=== PATIENT | female | born 1930 | race Caucasian/White ===

== ENCOUNTER 2017-11-14 05:20 | Emergency (ER) | payer MEDICARE, OTHER ==
[~2017-11-14] VITALS: Ht 157.5 cm; Wt 61.4 kg
[2017-11-14 05:24] VITALS: Ht 157.5 cm; Wt 61.4 kg
[2017-11-14] MEDS ORDERED: EVISTA60 MG PO (05:57)
[2017-11-14] MEDS ORDERED: MOBIC7.5 MG PO (05:58)
[2017-11-14] MEDS ORDERED: COREG6.25 MG PO (05:58)
[2017-11-14] MEDS ORDERED: GLUCOPHAGE500 MG PO (05:59)
[2017-11-14] MEDS ORDERED: BAYER CHEWABLE81 MG PO (06:00)
[2017-11-14] MEDS ORDERED: VITAMIN D31000 UNI2 PO (06:00)
[2017-11-14] MEDS ORDERED: B-12 (06:05)
[2017-11-14 06:27] LABS: BASOPHILS 0.2 % (0-2); EOSINOPHILS 2.9 % (0-7); HEMATOCRIT 34.9 % (36.0-48.0); HEMOGLOBIN 11.6 g/dL (12-16); IMMATURE GRANULOCYTES 0.4 % (0-5); LYMPHOCYTES 26.8 % (15-50); MCH 30.8 pg (26.0-34.0); MCHC 33.2 g/dL (31.0-37.0); MCV 92.6 fL (80.0-100.0); MEAN PLATELET VOLUME 8.8 fL (7.4-10.4); MONOCYTES 13.4 % (2-11); NEUTROPHILS 56.3 % (40-80); PLATELET COUNT 223 10x3/uL (130-400); RBC 3.77 10x6/uL (4.00-5.40); RDW 14.1 % (11.5-14.5); WBC 5.2 10x3/uL (4.8-10.8)
[2017-11-14 07:08] LABS: APTT 28.2 SECONDS (22.8-39.4); INR 1.09 (0.85-1.17); PROTIME 13.7 SECONDS (11.6-15.0)
[2017-11-14 07:09] LABS: ALBUMIN 3.6 g/dL (3.4-5.0); ALKALINE PHOSPHATASE 31 U/L (46-116); ALT (SGPT) 28 U/L (10-68); BILIRUBIN - TOTAL 0.43 mg/dL (0.2-1.3); CALC OSMOLALITY 277 mosm/kg (275-300); CALCIUM 8.6 mg/dL (8.5-10.1); CHLORIDE - SERUM 103 mmol/L (98-107); CREATININE - SERUM 0.8 mg/dL (0.6-1.3); GLUCOSE 146 mg/dL (74-106); POTASSIUM - SERUM 3.6 mmol/L (3.5-5.1); PROTEIN - SERUM 6.9 g/dL (6.4-8.2); SODIUM 138 mmol/L (136-145); UREA NITROGEN 11 mg/dL (7-18); eGFR NON AFRICAN AMERICAN 72 mL/min (90-120)
[2017-11-14 07:19] LABS: CKMB 0.6 U/L (0.0-3.6); CREATINE KINASE 45 UL (21-215); PRO BNP 63 pg/mL (0-450); TROPONIN-I < 0.017 ng/mL (0.000-0.060)
[2017-11-14] MEDS ORDERED: TYLENOL W/CODEI1 TAB PO (09:31)
[2017-11-14 10:16] VITALS: BP 141/70
== END 2017-11-14 10:37 | disposition home or self-care (01) ==
LOC: D.ER 05:20
PROVIDERS: Family Medicine
DX: S43.401A Unspecified sprain of right shoulder joint, initial encounter (principal); X58.XXXA Exposure to other specified factors, initial encounter; Y93.89 Activity, other specified; Y92.019 Unspecified place in single-family (private) house as the place of occurrence of the external cause; M25.511 Pain in right shoulder; I44.4 Left anterior fascicular block

== ENCOUNTER 2018-05-01 10:46 | Inpatient (IN) | payer MEDICARE, OTHER ==
[~2018-05-01] VITALS: Ht 157.5 cm; Wt 65.8 kg
[~2018-05-01 10:46] MED LIST: B-12; BAYER CHEWABLE81 MG PO; COREG6.25 MG PO; EVISTA60 MG PO; GLUCOPHAGE500 MG PO; MOBIC7.5 MG PO; TYLENOL W/CODEI1 TAB PO; VITAMIN D31000 UNI2 PO
[2018-05-01] MEDS ORDERED: MYRBETRIQ25 MG PO (11:19)
[2018-05-01] MEDS ORDERED: BENTYL10 MG PO (11:25)
[2018-05-01] MEDS ORDERED: IBUPROFEN IB100 MG PO (11:26)
[2018-05-01] MEDS ORDERED: ZYRTEC10 MG PO (11:26)
[2018-05-01 11:27] LABS: BASOPHILS 0 % (0-2); EOSINOPHILS 0.3 % (0-7); HEMATOCRIT 30.8 % (36.0-48.0); LYMPHOCYTES 19.9 % (15-50); MCH 28.6 pg (26.0-34.0); MCHC 32.5 g/dL (31.0-37.0); MEAN PLATELET VOLUME 8.7 fL (7.4-10.4); MONOCYTES 17.6 % (2-11); NEUTROPHILS 62.2 % (40-80); PLATELET COUNT 142 10x3/uL (130-400); RDW 14.7 % (11.5-14.5); WBC 3.9 10x3/uL (4.8-10.8)
[2018-05-01] MEDS ORDERED: CALCIUM 500 +1 EAC3 (11:27)
[2018-05-01] MEDS ORDERED: ZANTAC300 MG PO (11:27)
[2018-05-01] MEDS ORDERED: VITAMIN D250000 UNIT PO (11:28)
[2018-05-01] MEDS ORDERED: CELEXA20 MG PO ×2 (11:28→16:10)
[2018-05-01] MEDS ORDERED: ED-SPAZ0.125 MG PO (11:29)
[2018-05-01] MEDS ORDERED: MOBIC7.5 MG (11:29)
[2018-05-01] MEDS ORDERED: AMBIEN5 MG PO (11:30)
[2018-05-01] MEDS ORDERED: GLUCOPHAGE500 MG PO (11:30)
[2018-05-01] MEDS ORDERED: ASPIRIN81 MG PO (11:30)
[2018-05-01] MEDS ORDERED: LIPITOR20 MG PO (11:31)
[2018-05-01] MEDS ORDERED: FLUTICASONE PRO16 GM (11:32)
[2018-05-01 11:39] LABS: INR 1.13 (0.85-1.17)
[2018-05-01 11:40] LABS: APTT 35.8 SECONDS (22.8-39.4)
[2018-05-01 11:47] LABS: ALBUMIN 3.4 g/dL (3.4-5.0); ALKALINE PHOSPHATASE 40 U/L (46-116); ALT (SGPT) 20 U/L (10-68); CALC OSMOLALITY 278 mosm/kg (275-300); CALCIUM 8.2 mg/dL (8.5-10.1); CARBON DIOXIDE 24.1 mmol/L (21.0-32.0); CHLORIDE - SERUM 102 mmol/L (98-107); CREATININE - SERUM 0.7 mg/dL (0.6-1.3); GLUCOSE 129 mg/dL (74-106); POTASSIUM - SERUM 3.5 mmol/L (3.5-5.1); PROTEIN - SERUM 6.8 g/dL (6.4-8.2); SODIUM 139 mmol/L (136-145); UREA NITROGEN 10 mg/dL (7-18); eGFR NON AFRICAN AMERICAN 84 mL/min (90-120)
[2018-05-01 11:56] VITALS: BP 141/59
[2018-05-01 11:56] LABS: CKMB 0.2 U/L (0.0-3.6); CREATINE KINASE 56 UL (21-215)
[2018-05-01 11:57] LABS: TROPONIN-I < 0.017 ng/mL (0.000-0.060)
[2018-05-01 12:23] LABS: APPEARANCE SL CLDY (CLEAR); BILIRUBIN NEGATIVE (NEGATIVE); COLOR YELLOW (YELLOW); GLUCOSE NEGATIVE (NEGATIVE); KETONE MODERATE mg/dL (NEGATIVE); NITRITE POSITIVE (NEGATIVE); PROTEIN TRACE mg/dL (NEGATIVE); SPECIFIC GRAVITY 1.015 (1.005-1.020); UROBILINOGEN NORMAL (NORMAL); WHITE CELLS - URINE 0-5 /hpf (0-5)
[2018-05-01 12:24] LABS: BACTERIA MANY /hpf (NONE SEEN); EPITHELIAL CELLS 0-5 /hpf (0-5); MUCUS <1+ /lpf (NONE SEEN)
[2018-05-01] MEDS ORDERED: LIPITOR10 MG PO (12:34)
--- NOTE | 2018-05-01 12:35 | NUR ---
GRANDDAUGHTER AT NURSING STATION TO REPORT PT LIVES INDEPENDENTLY. SHE HAS NO ASSISTANCE AT HOME.
[2018-05-01] MEDS ORDERED: TAMIFLU75 MG PO (12:39)
[2018-05-01] MEDS ORDERED: CIPRO500 MG PO (12:39)
[2018-05-01 13:44] VITALS: BP 140/109
--- NOTE | 2018-05-01 15:10 | NUR ---
PT GRANDDAUGHTER: ALLISON KACIE - DPOA - [phone]
--- NOTE | 2018-05-01 15:12 | NUR ---
ROCEPHIN 1GM INFUSED AT 1328. LEVAQUIN 500MG INFUSED AT 1449. PT RESTING QUIETLY, DENIES NEEDS AT THIS TIME.
[2018-05-01 15:42] VITALS: BP 102/47
[2018-05-01] MEDS ORDERED: AMOXICILLIN500 M1 PO (16:09)
[2018-05-01 16:13] VITALS: BP 109/39; BMI 26.6
--- NOTE | 2018-05-01 19:45 | NUR ---
PT SITTING UP IN BED, NO SIGNS OF DISTRESS. ALERT AND ORIENTED. IV LEFT WRIST INFUSING NS @ 75. O2 2L/NC. DROPLET ISOLATION FOR FLU. ASSISTED ON AND OFF BEDPAN TO VOID. PT STATES LEGS ARE ACHY, GAVE TYLENOL ORDERED. SCDS IN PLACE. NO OTHER COMPLAINTS OR NEEDS AT THIS TIME. CL IN REACH, WILL CONTINUE TO MONITOR
--- NOTE | 2018-05-01 21:30 | NUR ---
BS 142, NO COVERAGE PER SS
[2018-05-01 21:36] VITALS: BP 98/44
--- NOTE | 2018-05-02 04:26 | NUR ---
PT ACCIDENTALLY PULLED OUT IV LEFT WRIST W/ CATHETER TIP INTACT. RESITED 22G IV RIGHT WRIST X2 ATTEMPT. FLUSHES EASILY. DRESSING CDI
[2018-05-02 05:44] VITALS: BP 135/55
[2018-05-02 05:50] LABS: BASOPHILS 0 % (0-2); EOSINOPHILS 0 % (0-7); HEMATOCRIT 32.2 % (36.0-48.0); HEMOGLOBIN 10.3 g/dL (12-16); LYMPHOCYTES 15.1 % (15-50); MCH 28.7 pg (26.0-34.0); MCV 89.7 fL (80.0-100.0); MEAN PLATELET VOLUME 9.2 fL (7.4-10.4); MONOCYTES 1.3 % (2-11); NEUTROPHILS 83.6 % (40-80); PLATELET COUNT 128 10x3/uL (130-400); RBC 3.59 10x6/uL (4.00-5.40); RDW 15.1 % (11.5-14.5); WBC 3.9 10x3/uL (4.8-10.8)
[2018-05-02 06:06] LABS: ANION GAP 16.3 mmol/L (8-16); CALCIUM 8.3 mg/dL (8.5-10.1); CARBON DIOXIDE 23.2 mmol/L (21.0-32.0); MAGNESIUM - SERUM 1.9 mg/dL (1.8-2.4); POTASSIUM - SERUM 3.5 mmol/L (3.5-5.1)
[2018-05-02 06:07] LABS: CREATININE - SERUM 0.9 mg/dL (0.6-1.3)
--- NOTE | 2018-05-02 06:27 | NUR ---
BS 98, NO COVERAGE PER SS
--- NOTE | 2018-05-02 07:35 | NUR ---
ASSESSMENT COMPLETE. IV TO R WRIST PATENT. DROPLET ISOLATION PRECAUTIONS IN PLACE. O2 2L NC IN USE. BLOOD TINGED SPUTUM NOTED. DENIES ANY NEEDS AT THIS TIME.
[2018-05-02 09:14] VITALS: BP 118/45
[2018-05-02 10:07] VITALS: Ht 157.5 cm; Wt 65.8 kg
--- NOTE | 2018-05-02 11:00 | NUR ---
RESTING QUIETLY IN BED. DENIES ANY NEEDS AT THIS TIME.
[2018-05-02 12:47] VITALS: BP 106/42
--- NOTE | 2018-05-02 15:33 | NUR ---
SCD'S IN USE TO BILAT LEGS.
[2018-05-02 16:23] VITALS: BP 104/49
[2018-05-02 21:11] VITALS: BP 107/49
[2018-05-03 00:46] VITALS: BP 132/42
[2018-05-03 05:42] VITALS: BP 166/70
[2018-05-03 05:45] LABS: CALC OSMOLALITY 286 mosm/kg (275-300); CALCIUM 8.2 mg/dL (8.5-10.1); CARBON DIOXIDE 22.8 mmol/L (21.0-32.0); CHLORIDE - SERUM 111 mmol/L (98-107); CREATININE - SERUM 0.7 mg/dL (0.6-1.3); GLUCOSE 97 mg/dL (74-106); HEMATOCRIT 28.6 % (36.0-48.0); HEMOGLOBIN 9.6 g/dL (12-16); LYMPHOCYTES 35.5 % (15-50); MAGNESIUM - SERUM 2.1 mg/dL (1.8-2.4); MCH 29.4 pg (26.0-34.0); MCHC 33.6 g/dL (31.0-37.0); MEAN PLATELET VOLUME 8.8 fL (7.4-10.4); NEUTROPHILS 42.4 % (40-80); PLATELET COUNT 110 10x3/uL (130-400); POTASSIUM - SERUM 3.4 mmol/L (3.5-5.1); RBC 3.26 10x6/uL (4.00-5.40); RDW 14.2 % (11.5-14.5); SODIUM 144 mmol/L (136-145); UREA NITROGEN 12 mg/dL (7-18); eGFR NON AFRICAN AMERICAN 84 mL/min (90-120)
[2018-05-03 05:46] LABS: MCV 87.7 fL (80.0-100.0); WBC 3.1 10x3/uL (4.8-10.8)
[2018-05-03 09:13] VITALS: BP 147/57
[2018-05-03 12:00] VITALS: BP 143/59
--- NOTE | 2018-05-03 15:18 | MORECARE ---
CASE MANAGEMENT DISCHARGE SUMMARY PATIENT: ARCELIA RUBIN UNIT: [id number] ADM DATE: 05/01/18 AGE: 87 : 31 SEX: F ROOM/BED: D.2202 AUTHOR: CADEN LIANG PHYSICIAN: REFERRING PHYSICIAN: CHERRI NELSON MD DATE OF SERVICE: 05/03/18 Discharge Plan Patient Name: ARCELIA RUBIN [facility] : 1930 Planned Disposition: Anticipated Discharge Date: Discharge Date: Expected LOS: Initial Reviewer: [email or web address] Initial Review Date: 05/01/2018 Generated: 05/03/18 4:17 pm Comments DCP- Discharge Planning Updated by [id number]: Rhonda Han on 05/03/18 2:[address] ATTEMPTED TO SEE PATIENT FOR DISCHARGE PLANNING AND SHE ASKED IF I COULD COME BACK, CM WILL TRY TO SEE PATIENT AT A LATER TIME Patient Name: ARCELIA RUBIN Page 66795 at 1518 All edits/amendments must be made on the electronic document DICTATION DATE: 05/03/181516 BEET TOPPER: JOSIAH 05/03/181516 RPT#: [id number] DC DATE: STATUS: ADM IN [facility] [address] [place] [address] END OF REPORT
[2018-05-03 16:00] VITALS: BP 121/58
[2018-05-03 22:01] VITALS: BP 129/53
[2018-05-04 05:14] VITALS: BP 144/64
[2018-05-04 06:54] LABS: HEMATOCRIT 29.4 % (36.0-48.0); HEMOGLOBIN 9.5 g/dL (12-16); MCH 28.2 pg (26.0-34.0); MCHC 32.3 g/dL (31.0-37.0); MCV 87.2 fL (80.0-100.0); MEAN PLATELET VOLUME 8.9 fL (7.4-10.4); PLATELET COUNT 129 10x3/uL (130-400); RBC 3.37 10x6/uL (4.00-5.40); RDW 14.9 % (11.5-14.5); WBC 2.6 10x3/uL (4.8-10.8)
[2018-05-04 07:11] LABS: CALC OSMOLALITY 281 mosm/kg (275-300); CALCIUM 8.3 mg/dL (8.5-10.1); CARBON DIOXIDE 21.7 mmol/L (21.0-32.0); CHLORIDE - SERUM 107 mmol/L (98-107); CREATININE - SERUM 0.7 mg/dL (0.6-1.3); GLUCOSE 98 mg/dL (74-106); MAGNESIUM - SERUM 1.7 mg/dL (1.8-2.4); POTASSIUM - SERUM 3.3 mmol/L (3.5-5.1); SODIUM 142 mmol/L (136-145); UREA NITROGEN 9 mg/dL (7-18); eGFR NON AFRICAN AMERICAN 84 mL/min (90-120)
[2018-05-04 08:43] LABS: EOSINOPHILS 1 % (0-7); HYPOCHROMASIA 2+; LYMPHOCYTES 39 % (15-50); MONOCYTES 4 % (2-11); NEUTROPHILS 53 % (40-80); PLATELET ESTIMATE NORMAL
[2018-05-04 09:00] VITALS: BP 146/66
--- NOTE | 2018-05-04 09:31 | NUR ---
LOW POTASSIUM, ADMINISTERED PO POTASSIUM, MAGNESIUM IV BAG 1/2 ADMINISTERED FOR LOW MAG PER PROTOCOL. BED LOWERED AND LOCKED, CALL LIGHT WITHIN REACH. CPOC
[2018-05-04 13:40] VITALS: BP 116/65
--- NOTE | 2018-05-04 14:28 | MORECARE ---
CASE MANAGEMENT DISCHARGE SUMMARY PATIENT: ARCELIA RUBIN UNIT: [id number] ADM DATE: 05/01/18 AGE: 87 : 31 SEX: F ROOM/BED: D.2202 AUTHOR: CADEN LIANG PHYSICIAN: REFERRING PHYSICIAN: CHERRI NELSON MD DATE OF SERVICE: 05/04/18 Discharge Plan Patient Name: ARCELIA RUBIN Facility: [facility]:[place] : 1930 Planned Disposition: Anticipated Discharge Date: Discharge Date: Expected LOS: Initial Reviewer: [email or web address] Initial Review Date: 05/04/2018 Generated: 05/04/18 3:28 pm Comments DCP- Discharge Planning Updated by [email or web address]: Rhonda Han on 05/03/18 2:[address] ATTEMPTED TO SEE PATIENT FOR DISCHARGE PLANNING AND SHE ASKED IF I COULD COME BACK, CM WILL TRY TO SEE PATIENT AT A LATER TIME DCPIA - Discharge Planning Initial Assessment Updated by [email or web address]: Rachel Ryan on 05/04/18 2:28 pm * Is the patient Alert and Oriented? Yes * PCP NELSNO * Preadmission Environment Home Alone * ADLs Independent * Equipment Cane Walker * List name and contact numbers for known caregivers / representatives who currently or will assist patient after discharge: RAMESH ANTHONY, * Verbal permission to speak to the caregivers and representatives has been obtained from the patient. Yes * Community resources currently utilized None * Additional services required to return to the preadmission environment? Yes * Can the patient safely return to the preadmission environment? Yes * Has this patient been hospitalized within the prior 30 days at any hospital? No Coverage Notice Reviewer: [email or web address] - Rachel Ryan Notice Issued Date-Time: 05/04/2018 14:18 Notice Type: Patient Choice Letter Notice Delivered To: Family Member Relationship to Patient: Materials Management Manager Name: Delivery Method: HAND - Hand Delivered Cindi Days: Prior Verbal Notification: Recipient Understood Notice: Yes Recipient Signature: Yes Med Rec Note Co-signed by Attending: Coverage Notice [facility] Last DP export: 05/03/18 2:18 p Patient Name: ARCELIA RUBIN Page [id number] at 1428 All edits/amendments must be made on the electronic document DICTATION DATE: 05/04/181426 AUTOMATIC FURNACE OPERATOR: JOSIAH 05/04/181426 RPT#: [id number] DC DATE: STATUS: ADM IN [facility] [address] [place] [address] END OF REPORT
--- NOTE | 2018-05-04 14:36 | MORECARE ---
CASE MANAGEMENT DISCHARGE SUMMARY PATIENT: ARCELIA RUBIN UNIT: [id number] ADM DATE: 05/01/18 AGE: 87 : 31 SEX: F ROOM/BED: D.2202 AUTHOR: GARTH,DOC PHYSICIAN: REFERRING PHYSICIAN: CHERRI NELSON MD DATE OF SERVICE: 05/04/18 Discharge Plan Patient Name: ARCELIA RUBIN Facility: [facility]:[place] : 1930 Planned Disposition: Anticipated Discharge Date: Discharge Date: Expected LOS: Initial Reviewer: [email or web address] Initial Review Date: 05/04/2018 Generated: 05/04/18 3:36 pm Comments DCP- Discharge Planning Updated by [email or web address]: Rachel Ryan on 05/04/18 1:[address] Patient Name: ARCELIA RUBIN Admission Status: ER Accout number: [id number] Admission Date: 05-01-2018 : 1930 Admission Diagnosis: Attending: CHERRI NELSON Current LOS: 3 Anticipated DC Date: Planned Disposition: Primary Insurance: MEDICARE A & B Discharge Planning Comments: CM MET WITH PATIENT AND HER JUDI STAN ABOUT DC PLANNING. PLANS TO DC TO INPATIENT REHAB OR [facility]. SAVAGE SIGNED. PATIENT LIVES AT [facility] IN AN [place]. CONSULTS WERE PUT IN TODAY FOR OT, PT AND REHAB. CM WILL FOLLOW AND ASSIST NEEDED WITH DC PLANNING/NEEDS. Assignment Desk Assistant: Rachel Ryan DCP- Discharge Planning Updated by [email or web address]: Rhonda Han on 05/03/18 2:[address] ATTEMPTED TO SEE PATIENT FOR DISCHARGE PLANNING AND SHE ASKED IF I COULD COME BACK, CM WILL TRY TO SEE PATIENT AT A LATER TIME DCPIA - Discharge Planning Initial Assessment Updated by [email or web address]: Rachel Ryan on 05/04/18 2:28 pm * Is the patient Alert and Oriented? Yes * PCP LESLIE * Preadmission Environment Home Alone * ADLs Independent * Equipment Cane Walker * List name and contact numbers for known caregivers / representatives who currently or will assist patient after discharge: RAMESH ANTHONY, * Verbal permission to speak to the caregivers and representatives has been obtained from the patient. Yes * Community resources currently utilized None * Additional services required to return to the preadmission environment? Yes * Can the patient safely return to the preadmission environment? Yes * Has this patient been hospitalized within the prior 30 days at any hospital? No Coverage Notice Reviewer: [id number] Diana Ryan Notice Issued Date-Time: 05/04/2018 14:18 Notice Type: Patient Choice Letter Notice Delivered To: Family Member Relationship to Patient: Assistant Professor Of Dietetics Name: Delivery Method: HAND - Hand Delivered Cindi Days: Prior Verbal Notification: Recipient Understood Notice: Yes Recipient Signature: Yes Med Rec Note Co-signed by Attending: Coverage Notice Comment: [facility]REHAB OR [facility] Last DP export: 05/04/18 1:28 p Patient Name: ARCELIA RUBIN Page [phone] at 1436 All edits/amendments must be made on the electronic document DICTATION DATE: 05/04/18 1436 INSPECTOR AND UNLOADER: JOSIAH 05/04/18 1436 RPT#: [id number] DC DATE: STATUS: ADM IN [facility] [address] [place] [address] END OF REPORT
--- NOTE | 2018-05-04 14:47 | NUR ---
REHAB PRESCREEN PT IS CURRENTLY REFUSING THERAPY AND WANTS TO WAIT TIL SUNDAY BECAUSE SHE IS TO WEAK. WILL MONITOR HER PROGRESSION AND EVAL HER WHEN SHE IS MORE WILLING. THANK YOU FOR THIS EVAL. JANNIE CANALES CLINICAL LIASION
[2018-05-04 18:20] VITALS: BP 146/99
--- NOTE | 2018-05-04 19:25 | NUR ---
ALERT, EVEN UNLABORED BREATHING ON ROOM AIR, IV IN RIGHT WRIST, PATENT, IV FLUIDS INFUSING, BED LOWERED AND LOCKED, CALL LIGHT WITHIN REACH. CPOC
--- NOTE | 2018-05-04 20:15 | NUR ---
LYING IN BED. ALERT AND ORIENTED TO SELF AND PLACE. CONFUSED. RESP NONLABORED. BBS DIMINISHED. DENIES PAIN. O2 @ 2L/NC. GEN WEAKNESS NOTED. INCONT AT TIMES. NS @ 75 ML/HR INFUSING IN RT WRIST WITHOUT DIFF. NO DISTRESS. ISOLATION PRECAUTIONS IN USE FOR FLU. SR ELEVATED X2. CL IN REACH.
[2018-05-04 21:41] VITALS: BP 133/54
[2018-05-05 04:24] VITALS: BP 139/59
--- NOTE | 2018-05-05 04:45 | NUR ---
HAS SLEPT WELL TONIGHT. NO DISTRESS. CL IN REACH.
[2018-05-05 06:48] LABS: BASOPHILS 0.4 % (0-2); EOSINOPHILS 1.8 % (0-7); HEMATOCRIT 30.5 % (36.0-48.0); HEMOGLOBIN 9.7 g/dL (12-16); LYMPHOCYTES 49.6 % (15-50); MCH 28.1 pg (26.0-34.0); MCHC 31.8 g/dL (31.0-37.0); MCV 88.4 fL (80.0-100.0); MEAN PLATELET VOLUME 9.2 fL (7.4-10.4); MONOCYTES 12.1 % (2-11); NEUTROPHILS 36.1 % (40-80); PLATELET COUNT 129 10x3/uL (130-400); RBC 3.45 10x6/uL (4.00-5.40); RDW 14.7 % (11.5-14.5); WBC 2.7 10x3/uL (4.8-10.8)
[2018-05-05 06:59] LABS: CALC OSMOLALITY 281 mosm/kg (275-300); CALCIUM 8.1 mg/dL (8.5-10.1); CARBON DIOXIDE 23.6 mmol/L (21.0-32.0); CHLORIDE - SERUM 108 mmol/L (98-107); CREATININE - SERUM 0.7 mg/dL (0.6-1.3); GLUCOSE 103 mg/dL (74-106); POTASSIUM - SERUM 3.7 mmol/L (3.5-5.1); SODIUM 142 mmol/L (136-145); UREA NITROGEN 9 mg/dL (7-18); eGFR NON AFRICAN AMERICAN 84 mL/min (90-120)
--- NOTE | 2018-05-05 08:04 | NUR ---
SITTING UP RIGHT IN BED, ASSISTED TO USE BED [place]. EVEN UNLABORED BREATHING, O2 PRESENT VIA NC AT 2LPM, AWAKE AND ALERT, ORIENTED X4. SCD'S ON AND IN OPERATION, DENIES ANY CURRENT NEEDS OR DISCOMFORTS, BED LOWERED AND LOCKED, CALL LIGHT WITHIN REACH. CPOC
[2018-05-05 11:02] VITALS: BP 142/60
--- NOTE | 2018-05-05 12:24 | NUR ---
AWAKE AND ALERT, WAS SITTING UP IN CHAIR FOR AN HOUR, ASSISTED TO BEDPAN, VOIDED, ASSISTED WITH 2 PEOPLE BACK TO BED, SCD'S ON AND IN OPERATION, DENIES ANY CURRENT NEEDS OR DISCOMFORTS, BED LOWERED AND LOCKED, CALL LIGHT WTIHIN REACH. CPOC
[2018-05-05 14:15] VITALS: BP 150/64
[2018-05-05 18:48] VITALS: BP 169/70
--- NOTE | 2018-05-05 19:12 | NUR ---
AWAKE AND ALERT, EVEN UNLABORED BREATHING, 2LPM VIA NC, IV IN RIGHT WRIST, PATENT INFUSING NS, DENIES ANY CURRENT NEEDS OR DISCOMFORTS, BED LOWERED AND LOCKED, CALL LIGHT WITHIN REACH. CPOC
--- NOTE | 2018-05-05 19:40 | NUR ---
PT RESTING QUIETLY
--- NOTE | 2018-05-05 19:45 | NUR ---
LYING IN BED. ALERT AND ORIENTED X4. RESP EVEN AND NONLABORED. BBS DIMINISHED. O2 @ 2L/NC. INCONT OF URINE AT TIMES OTHERWISE USES BEDPAN. GEN WEAKNESS NOTED. SCDS IN USE BILAT. NS @ 50 ML/HR INFUSING IN RT WRIST WITHOUT DIFF. NO DISTRESS. DENIES PAIN. ISOLATION PRECAUTIONS IN USE. CL IN REACH.
[2018-05-05 20:00] VITALS: BP 139/85
--- NOTE | 2018-05-06 01:15 | NUR ---
HAS RESTED WELL SO FAR TONIGHT. NO DISTRESS. CL IN REACH.
[2018-05-06 04:00] VITALS: BP 142/61
[2018-05-06 04:17] LABS: BASOPHILS 0.3 % (0-2); EOSINOPHILS 2.5 % (0-7); HEMATOCRIT 30.9 % (36.0-48.0); LYMPHOCYTES 40.4 % (15-50); MCH 28.5 pg (26.0-34.0); MCHC 32.4 g/dL (31.0-37.0); MEAN PLATELET VOLUME 8.8 fL (7.4-10.4); NEUTROPHILS 42.8 % (40-80); PLATELET COUNT 121 10x3/uL (130-400); RBC 3.51 10x6/uL (4.00-5.40); RDW 14.5 % (11.5-14.5); WBC 3.1 10x3/uL (4.8-10.8)
[2018-05-06 04:33] LABS: CALC OSMOLALITY 282 mosm/kg (275-300); CALCIUM 8.6 mg/dL (8.5-10.1); CARBON DIOXIDE 23.4 mmol/L (21.0-32.0); CHLORIDE - SERUM 107 mmol/L (98-107); CREATININE - SERUM 0.6 mg/dL (0.6-1.3); GLUCOSE 116 mg/dL (74-106); MAGNESIUM - SERUM 1.8 mg/dL (1.8-2.4); POTASSIUM - SERUM 3.6 mmol/L (3.5-5.1); SODIUM 142 mmol/L (136-145); UREA NITROGEN 10 mg/dL (7-18); eGFR NON AFRICAN AMERICAN > 90 mL/min (90-120)
--- NOTE | 2018-05-06 07:20 | NUR ---
REC'D IN WALKING ROUND IN BED WITH EYES CLOSED EASILY TO AROUSED WHEN NAME IS CALLED. RESP EVEN AND UNLABORED WITH NO DISTRESS NOTED. CAN EXPRESS NEEDS AND WANTS WITH NONE VOICED AT THIS TIME. ASSESSMENT COMPLETED. C/L IN REACH AT BEDSIDE.
[2018-05-06 08:44] VITALS: BP 150/66
[2018-05-06] MEDS ORDERED: LEVOFLOXACIN500 MG PO (09:50)
--- NOTE | 2018-05-06 10:03 | MORECARE ---
CASE MANAGEMENT DISCHARGE SUMMARY PATIENT: ARCELIA RUBIN UNIT: [id number] ADM DATE: 05/01/18 AGE: 87 : 31 SEX: F ROOM/BED: D.2202 AUTHOR: GARTH,DOC PHYSICIAN: REFERRING PHYSICIAN: CHERRI NELSON MD DATE OF SERVICE: 05/06/18 Discharge Plan Patient Name: ARCELIA RUBIN Facility: [facility]:[place] : 1930 Planned Disposition: Anticipated Discharge Date: Discharge Date: Expected LOS: Initial Reviewer: [id number] Initial Review Date: 05/04/2018 Generated: 05/06/18 11:03 am Comments DCP- Discharge Planning Updated by [email or web address]: Rhonda Han on 05/06/18 9:[address] referral sent to [facility], Spoke with Netta. She will get back with me DCP- Discharge Planning Updated by [id number]: Rachel Ryan on 05/04/18 1:[address] Patient Name: ARCELIA RUBIN Admission Status: ER Accout number: [id number] Admission Date: 05-01-2018 : 1930 Admission Diagnosis: Attending: CHERRI NELSON Current LOS: 3 Anticipated DC Date: Planned Disposition: Primary Insurance: MEDICARE A & B Discharge Planning Comments: CM [facility]. PLANS TO DC TO INPATIENT REHAB [facility] SAVAGE SIGNED. PATIENT LIVES AT [facility] IN AN [place]. CONSULTS WERE PUT IN TODAY FOR OT, PT AND REHAB. CM WILL FOLLOW AND ASSIST NEEDED WITH DC PLANNING/NEEDS. Fountain Helper: Rachel Ryan DCP- Discharge Planning Updated by [email or web address]: Rhonda Han on 05/03/18 2:[address] ATTEMPTED TO SEE PATIENT FOR DISCHARGE PLANNING AND SHE ASKED IF I COULD COME BACK, CM WILL TRY TO SEE PATIENT AT A LATER TIME DCPIA - Discharge Planning Initial Assessment Updated by [email or web address]: Rachel Ryan on 05/04/18 2:28 pm * Is the patient Alert and Oriented? Yes * PCP LESLIE * Preadmission Environment Home Alone * ADLs Independent * Equipment Cane Walker * List name and contact numbers for known caregivers / representatives who currently or will assist patient after discharge: RAMESH ANTHONY, * Verbal permission to speak to the caregivers and representatives has been obtained from the patient. Yes * Community resources currently utilized None * Additional services required to return to the preadmission environment? Yes * Can the patient safely return to the preadmission environment? Yes * Has this patient been hospitalized within the prior 30 days at any hospital? No External Providers External Provider: [facility] Next Contact Date: Service Request Date: Service Type: Resolution: Reviewer: Comments: Coverage Notice Reviewer: [id number] - Rachel Ryan Notice Issued Date-Time: 05/04/2018 14:18 Notice Type: Patient Choice Letter Notice Delivered To: Family Member Relationship to Patient: Cardiac Rehab Nurse Name: Delivery Method: HAND - Hand Delivered Cindi Days: Prior Verbal Notification: Recipient Understood Notice: Yes Recipient Signature: Yes Med Rec Note Co-signed by Attending: Coverage Notice Comment: [facility] Last DP export: 05/04/18 1:36 p Patient Name: ARCELIA RUBIN Page 31001 at 1003 All edits/amendments must be made on the electronic document DICTATION DATE: 05/06/18 1003 CABINET ABRASIVE SANDBLASTER: JOSIAH 05/06/18 1003 RPT#: [id number] DC DATE: STATUS: ADM IN [facility] [address] [place] [address] END OF REPORT
--- NOTE | 2018-05-06 10:41 | NUR ---
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 Provided our acute rehab info. Spoke with JOSE Parks. Thank you for this referral! Jacquie Ann RN Clinical Liaison, [facility]
--- NOTE | 2018-05-06 13:02 | MORECARE ---
CASE MANAGEMENT DISCHARGE SUMMARY PATIENT: ARCELIA RBUIN UNIT: [id number] ADM DATE: 05/01/18 AGE: 87 : 31 SEX: F ROOM/BED: D.2202 AUTHOR: CADEN LIANG PHYSICIAN: REFERRING PHYSICIAN: CHERRI NELSON MD DATE OF SERVICE: 05/06/18 Discharge Plan Patient Name: ARCELIA RUBIN Facility: [facility]:[place] : 1930 Planned Disposition: Anticipated Discharge Date: Discharge Date: Expected LOS: Initial Reviewer: [email or web address] Initial Review Date: 05/04/2018 Generated: 05/06/18 2:01 pm Comments DCP- Discharge Planning Updated by [id number]: Rhonda Han on 05/06/18 11:[address] [facility] stated that they can not take the patient because of her recent DX of the FLU even though her Flu was Negative today. I have called Jacquie at rehab to see if it is still an option to go to inpatient rehab, left message DCP- Discharge Planning Updated by [id number]: Rhonda Han on 05/06/18 9:[address] [facility], Spoke with Netta. She will get back with me DCP- Discharge Planning Updated by [email or web address]: Rachel Ryan on 05/04/18 1:[address] Patient Name: ARCELIA RUBIN Admission Status: ER Accout number: [id number] Admission Date: 05-01-2018 : 1930 Admission Diagnosis: Attending: CHERRI NELSON Current LOS: 3 Anticipated DC Date: Planned Disposition: Primary Insurance: MEDICARE A & B Discharge Planning Comments: CM MET WITH PATIENT AND HER JUDI PIERCE ABOUT DC PLANNING. PLANS TO DC TO INPATIENT REHAB [facility] SAVAGE SIGNED. PATIENT LIVES AT [facility] IN AN [place]. CONSULTS WERE PUT IN TODAY FOR OT, PT AND REHAB. CM WILL FOLLOW AND ASSIST NEEDED WITH DC PLANNING/NEEDS. Trim Setter Helper: Rachel Ryan DCP- Discharge Planning Updated by [id number]: Rhonda Han on 05/03/18 2:[address] ATTEMPTED TO SEE PATIENT FOR DISCHARGE PLANNING AND SHE ASKED IF I COULD COME BACK, CM WILL TRY TO SEE PATIENT AT A LATER TIME DCPIA - Discharge Planning Initial Assessment Updated by [email or web address]: Rachel Ryan on 05/04/18 2:28 pm * Is the patient Alert and Oriented? Yes * PCP LESLIE * Preadmission Environment Home Alone * ADLs Independent * Equipment Cane Walker * List name and contact numbers for known caregivers / representatives who currently or will assist patient after discharge: RAMESH ANTHONY, * Verbal permission to speak to the caregivers and representatives has been obtained from the patient. Yes * Community resources currently utilized None * Additional services required to return to the preadmission environment? Yes * Can the patient safely return to the preadmission environment? Yes * Has this patient been hospitalized within the prior 30 days at any hospital? No Coverage Notice Reviewer: [id number] - Racheltammi Ryan Notice Issued Date-Time: 05/04/2018 14:18 Notice Type: Patient Choice Letter Notice Delivered To: Family Member Relationship to Patient: Concierge Manager Name: Delivery Method: HAND - Hand Delivered Cindi Days: Prior Verbal Notification: Recipient Understood Notice: Yes Recipient Signature: Yes Med Rec Note Co-signed by Attending: Coverage Notice Comment: [facility]AB [facility] Last DP export: 05/06/18 9:03 a Patient Name: ARCELIA RUBIN Page 68976 at 1302 All edits/amendments must be made on the electronic document DICTATION DATE: 05/06/18 1301 CHORUS MASTER: JOSIAH 05/06/18 1301 RPT#: [id number] DC DATE: STATUS: ADM IN [facility] [address] [place] [address] END OF REPORT
[2018-05-06 13:16] VITALS: BP 126/59
--- NOTE | 2018-05-06 13:53 | MORECARE ---
CASE MANAGEMENT DISCHARGE SUMMARY PATIENT: ARCELIA RUBIN UNIT: [id number] ADM DATE: 05/01/18 AGE: 87 : 31 SEX: F ROOM/BED: D.2202 AUTHOR: GARTHDOC PHYSICIAN: REFERRING PHYSICIAN: CHERRI NELSON MD DATE OF SERVICE: 05/06/18 Discharge Plan Patient Name: ARCELIA RUBIN Facility: [facility]:[place] : 1930 Planned Disposition: Anticipated Discharge Date: Discharge Date: Expected LOS: Initial Reviewer: [id number] Initial Review Date: 05/04/2018 Generated: 05/06/18 2:53 pm Comments DCP- Discharge Planning Updated by [email or web address]: Rhonda Emely on 05/06/18 12:[address] Spoke with Jacquie at inpatient rehab and they will accept her today. IMM served and explained and she is agreeable with the discharge plan. I have LM with her granddaughter to call me. CM will continue to follow and assist with DC planning DCP- Discharge Planning Updated by [email or web address]: Rhonda Han on 05/06/18 11:[address] [facility] the patient because of her recent DX of the FLU even though her Flu was Negative today. I have called Jacquie at rehab to see if it is still an option to go to inpatient rehab, left message DCP- Discharge Planning Updated by [email or web address]: Rhonda Han on 05/06/18 9:[address] referral sent to [facility], Spoke with Netta. She will get back with me DCP- Discharge Planning Updated by [email or web address]: Rachel Ryan on 05/04/18 1:[address] Patient Name: ARCELIA RUBIN Admission Status: ER Accout number: [id number] Admission Date: 05-01-2018 : 1930 Admission Diagnosis: Attending: CHERRI NELSON Current LOS: 3 Anticipated DC Date: Planned Disposition: Primary Insurance: MEDICARE A & B Discharge Planning Comments: CM MET WITH PATIENT AND HER GRANDAUGHLAKE ABOUT DC PLANNING. PLANS TO DC TO INPATIENT REHAB OR [facility]. SAVAGE SIGNED. PATIENT LIVES AT [facility] IN AN [place]. CONSULTS WERE PUT IN TODAY FOR OT, PT AND REHAB. CM WILL FOLLOW AND ASSIST NEEDED WITH DC PLANNING/NEEDS. Cupola Melter Helper: Rachel Shelby DCP- Discharge Planning Updated by [id number]: Rhonda Han on 05/03/18 2:[address] ATTEMPTED TO SEE PATIENT FOR DISCHARGE PLANNING AND SHE ASKED IF I COULD COME BACK, CM WILL TRY TO SEE PATIENT AT A LATER TIME DCPIA - Discharge Planning Initial Assessment Updated by [email or web address]: Rachel Ryan on 05/04/18 2:28 pm * Is the patient Alert and Oriented? Yes * PCP NELSON * Preadmission Environment Home Alone * ADLs Independent * Equipment Cane Walker * List name and contact numbers for known caregivers / representatives who currently or will assist patient after discharge: RAMESH ANTHONY, * Verbal permission to speak to the caregivers and representatives has been obtained from the patient. Yes * Community resources currently utilized None * Additional services required to return to the preadmission environment? Yes * Can the patient safely return to the preadmission environment? Yes * Has this patient been hospitalized within the prior 30 days at any hospital? No Coverage Notice Reviewer: [id number] - Rachel Shelby Notice Issued Date-Time: 05/04/2018 14:18 Notice Type: Patient Choice Letter Notice Delivered To: Family Member Relationship to Patient: Time Checker Name: Delivery Method: HAND - Hand Delivered Cindi Days: Prior Verbal Notification: Recipient Understood Notice: Yes Recipient Signature: Yes Med Rec Note Co-signed by Attending: Coverage Notice Comment: [facility]HAB OR [facility] Reviewer: [id number] - Rhonda Han Notice Issued Date-Time: 05/06/2018 13:40 Notice Type: IM Discharge Notice Notice Delivered To: Patient Relationship to Patient: Time Checker Name: Delivery Method: HAND - Hand Delivered Cindi Days: Prior Verbal Notification: Recipient Understood Notice: Yes Recipient Signature: Yes Med Rec Note Co-signed by Attending: Coverage Notice Comment: Last DP export: 05/06/18 12:02 p Patient Name: ARCELIA RUBIN Page 13863 at 1353 All edits/amendments must be made on the electronic document DICTATION DATE: 05/06/181351 CREDIT OPERATIONS SPECIALIST: JOSIAH 05/06/18 135 RPT#: [id number] DC DATE: STATUS: ADM IN [facility] [address] [place] [address] END OF REPORT
--- NOTE | 2018-05-06 16:54 | NUR ---
OT NOTE: PT COMPLETED BED MOB WITH MOD A. PT COMPLETED EOB SITTING WITH MIN/MOD A. PT COMPLETED UE AROM AXS. THANK YOU, ISAK NOWAK
[2018-05-06 17:29] VITALS: BP 119/60
--- NOTE | 2018-05-06 17:34 | NUR ---
DC DOWN TO IN HOUSE REHAB AT THIS TIME. IV DC. PT WAS IN STABLE CONDITON UPON DEPARTURE.
--- NOTE | 2018-05-07 17:04 | MORECARE ---
CASE MANAGEMENT DISCHARGE SUMMARY PATIENT: ARCELIA RUBIN UNIT: [id number] ADM DATE: 05/01/18 AGE: 87 : 31 SEX: F ROOM/BED: D.2202 AUTHOR: CADEN LIANG PHYSICIAN: REFERRING PHYSICIAN: CHERRI NELSON MD DATE OF SERVICE: 05/07/18 Discharge Plan Patient Name: ARCELIA RUBIN Facility: [facility]:[place] : 1930 Planned Disposition: Anticipated Discharge Date: Discharge Date: 05/06/2018 Expected LOS: 0 Initial Reviewer: [id number] Initial Review Date: 05/04/2018 Generated: 05/07/18 6:04 pm Comments DCP- Discharge Planning Updated by [email or web address]: Rhonda Emely on 05/06/18 12:[address] Spoke with Jacquie at inpatient rehab and they will accept her today. IMM served and explained and she is agreeable with the discharge plan. I have LM with her granddaughter to call me. CM will continue to follow and assist with DC planning DCP- Discharge Planning Updated by [email or web address]: Rhonda Han on 05/06/18 11:[address]ta with [facility] called and stated that they can not take the patient because of her recent DX of the FLU even though her Flu was Negative today. I have called Jacquie at rehab to see if it is still an option to go to inpatient rehab, left message DCP- Discharge Planning Updated by [email or web address]: Rhonda Han on 05/06/18 9:[address] referral sent to [facility], Spoke with Netta. She will get back with me DCP- Discharge Planning Updated by [email or web address]: Rachel Ryan on 05/04/18 1:[address] Patient Name: ARCELIA RUBIN Admission Status: ER Accout number: [id number] Admission Date: 05-01-2018 : 1930 Admission Diagnosis: Attending: CHERRI NELSON Current LOS: 3 Anticipated DC Date: Planned Disposition: Primary Insurance: MEDICARE A & B Discharge Planning Comments: CM MET WITH PATIENT AND HER GRANDAUGHLAKE ABOUT DC PLANNING. PLANS TO DC TO INPATIENT REHAB OR WANTS [facility] SNF. SAVAGE SIGNED. PATIENT LIVES AT [facility] IN AN INDEPENDANT HALF-WAY COMMUNITY. CONSULTS WERE PUT IN TODAY FOR OT, PT AND REHAB. CM WILL FOLLOW AND ASSIST NEEDED WITH DC PLANNING/NEEDS. Director Of Sustainability: Rachel Ryan DCP- Discharge Planning Updated by [id number]: Rhonda Han on 05/03/18 2:[address] ATTEMPTED TO SEE PATIENT FOR DISCHARGE PLANNING AND SHE ASKED IF I COULD COME BACK, CM WILL TRY TO SEE PATIENT AT A LATER TIME DCPIA - Discharge Planning Initial Assessment Updated by [email or web address]: Rachel Ryan on 05/04/18 2:28 pm * Is the patient Alert and Oriented? Yes * PCP NELSON * Preadmission Environment Home Alone * ADLs Independent * Equipment Cane Walker * List name and contact numbers for known caregivers / representatives who currently or will assist patient after discharge: RAMESH ANTHONY, * Verbal permission to speak to the caregivers and representatives has been obtained from the patient. Yes * Community resources currently utilized None * Additional services required to return to the preadmission environment? Yes * Can the patient safely return to the preadmission environment? Yes * Has this patient been hospitalized within the prior 30 days at any hospital? No Coverage Notice Reviewer: [email or web address] - Rachel Shelby Notice Issued Date-Time: 05/04/2018 14:18 Notice Type: Patient Choice Letter Notice Delivered To: Family Member Relationship to Patient: Wafer Abrading Machine Tender Name: Delivery Method: HAND - Hand Delivered Cindi Days: Prior Verbal Notification: Recipient Understood Notice: Yes Recipient Signature: Yes Med Rec Note Co-signed by Attending: Coverage Notice Comment: IPREHAB OR [facility] Reviewer: [id number] - Rhonda Han Notice Issued Date-Time: 05/06/2018 13:40 Notice Type: IM Discharge Notice Notice Delivered To: Patient Relationship to Patient: Wafer Abrading Machine Tender Name: Delivery Method: HAND - Hand Delivered Cindi Days: Prior Verbal Notification: Recipient Understood Notice: Yes Recipient Signature: Yes Med Rec Note Co-signed by Attending: Coverage Notice Comment: Last DP export: 05/06/18 12:53 p Patient Name: ARCELIA RUBIN Page [phone] at 1704 All edits/amendments must be made on the electronic document DICTATION DATE: 05/07/181703 HOUSING COURT JUDGE: JOSIAH 05/07/181703 RPT#: [id number] DC DATE:05/06/18 STATUS: DIS IN [facility] [address] [place] [address] END OF REPORT
== END 2018-05-06 17:59 | DRG 194 ==
LOC: D.ER 10:46 → D.EDHOLD 12:52 → D.MS 12:52
PROVIDERS: Emergency Medicine; Family Medicine Adult Medicine; ADMIT Family Medicine
DX: J10.1 Influenza due to other identified influenza virus with other respiratory manifestations (principal); N39.0 Urinary tract infection, site not specified; E86.0 Dehydration; G72.9 Myopathy, unspecified; K21.9 Gastro-esophageal reflux disease without esophagitis; B96.1 Klebsiella pneumoniae [K. pneumoniae] as the cause of diseases classified elsewhere; E11.65 Type 2 diabetes mellitus with hyperglycemia; M19.90 Unspecified osteoarthritis, unspecified site; M54.9 Dorsalgia, unspecified; G89.29 Other chronic pain; F32.9 Major depressive disorder, single episode, unspecified; I25.10 Atherosclerotic heart disease of native coronary artery without angina pectoris

== ENCOUNTER 2018-05-06 18:55 | Inpatient (IN) | payer MEDICARE, OTHER ==
[~2018-05-06] VITALS: Ht 157.5 cm; Wt 65.8 kg
--- NOTE | ~2018-05-06 | RHP ---
PATIENT: ARCELIA RUBIN MEDICAL RECORD: [id number] ACCOUNT: [id number] LOCATION:[facility]1118 : 32 ADMISSION DATE: 05/06/18 REHABILITATION HISTORY AND PHYSICAL EXAMINATION POST ADMISSION PHYSICIAN EXAMINATION DATE OF ADMISSION: 05/06/2018 ADMITTING DIAGNOSES: Disuse myopathy. HISTORY OF PRESENT ILLNESS: The patient is an 87-year-old female patient admitted to rehab with a working diagnosis of a disuse myopathy. She presented to the ED via EMS with 24-hour history of cough, chills, confusion, congestion, body aches and weakness. She has been immunized for the flu and for pneumococcal pneumonia. She was found to have influenza A. She got a history of diabetes, acid reflux, arthritis, chronic back pain, depression, contractures and coronary artery disease. She was also found to have a urinary tract infection with extended-spectrum beta-lactamase positive Klebsiella. She has been in the droplet contact isolation room since then, she has also completed Tamiflu medication regimen. She continues to have shortness of breath with use of 2 liters of nasal cannula for oxygen. She has been having updrafts. She has been having pain and deconditioning, debility, proximal muscle weakness, impaired mobility, high risk for falls and self-care deficit and these are all barriers to discharge her going home at this time. She was moderately independent with her mobility, moderately independent to independent with her ADLs prior to this hospitalization. States that this flu just really hit her suddenly, it has made her so weak. She plans to be able to return home at [facility] and be set up for home health. COMORBIDITIES: In this patient include cystitis, influenza A, UTI, febrile illness, dehydration, myopathy, acute urinary tract infection, acid reflux, arthritis, chronic back pain, contractures, depression, deconditioning, debility, shortness of breath, proximal muscle weakness, and impaired mobility. PAST MEDICAL HISTORY: Significant for diabetes, arthritis, chronic back pain, contractures, acid reflux, hysterectomy. PAST SURGICAL HISTORY: Includes hysterectomy. ALLERGIES: SULFA. CURRENT MEDICATIONS: Include metformin 500 mg daily. She is on Pepcid 20 mg daily, meloxicam 7.5 mg daily, Levaquin 500 mg daily, Flonase nasal spray 1 spray daily, citalopram 20 mg daily, vitamin D 1000 units daily, Lyndsay 60 mg daily, carvedilol 6.25 mg b.i.d. with meals, aspirin chewable 81 mg daily, Ambien 5 mg at bedtime, Levsin as needed for dyspepsia 0.125 mg every 6 hours, Bentyl 10 mg t.i.d., atorvastatin 5 mg at bedtime, Tylenol No. 3 as needed for pain, and polyethylene glycol 17 g in 8 ounces of water daily. HABITS: No current alcohol or tobacco use. FAMILY HISTORY: Noncontributory. SOCIAL HISTORY: The patient hopes to return back home to the [facility] and get back to her prior level of functioning. HISTORY AND PHYSICAL [id number] ARCELIA RUBIN REVIEW OF SYSTEMS: GENERAL: Does complain of weakness and fatigue. HEENT: Denies cold, cough, or congestion. CARDIOVASCULAR: Denies chest pain. PHYSICAL EXAMINATION: VITAL SIGNS: Stable, afebrile. GENERAL: A well-developed female in no acute distress, alert upon exam. HEENT: Normocephalic and atraumatic. Mucosa moist. NECK: Supple. No lymphadenopathy. LUNGS: Clear at this time with no wheeze, rhonchi or rales. HEART: Regular rate and rhythm. No murmurs, rubs or gallops. ABDOMEN: Benign. EXTREMITIES: No clubbing, cyanosis or edema. NEUROLOGIC: She does have noted proximal muscle weakness. 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 The patient has potential to make improvement. We will institute the following multidisciplinary therapies but not limited to physical, occupational, respiratory, speech, nutritional services, prosthetics, and orthotics. Given her complex medical condition and risks for more complications, rehabilitation services cannot be provided at a low level of care such as [facility] facility. PLAN: 1. Admit to [facility] for intensive inpatient therapy to include the following disciplines: A. Physical therapy to improve gait, all transfer skills, and bed mobility to a modified independent level. B. Occupational therapy to improve activities of daily living to a modified independent level. C. Case management to assist with discharge planning and placement options. D. Nutrition to assist with nutritional needs. E. Rehabilitation nursing to assist in monitoring the patient's underlying medical conditions and to assist with any type of bowel or bladder management. 2. The patient's current medication and medical care will be continued. 3. The patient will be placed on standard fall precautions. 4. The patient's estimated length of stay is approximately 7-10 days. 5. We will watch for any signs of recurrent cystitis. We will get her up and going again and hopefully back to [facility] soon. TRANSINT:[id number] Voice Confirmation ID: [id number] DOCUMENT ID: [id number] 05/10/2018 Edited for jimmie NELSON. OMAR notes whether there has been none or any medical/functional change since admission: - No change since preadmission screen. OMAR attests patient continues to be appropriate for IRF: - Continues to be appropriate. HISTORY AND PHYSICAL [id number] ARCELIA RUBIN SCOTT MD CC: [id number] DICTATION DATE: 05/07/18719 AIRPLANE DISPATCHER: 05/07/18 0804 ADM IN [facility] [address] [id number]
[~2018-05-06 18:55] MED LIST changes: +AMBIEN5 MG PO; +AMOXICILLIN500 M1 PO; +ASPIRIN81 MG PO; +BENTYL10 MG PO; +CALCIUM 500 +1 EAC3; +CELEXA20 MG PO; +CIPRO500 MG PO; +ED-SPAZ0.125 MG PO; +FLUTICASONE PRO16 GM; +IBUPROFEN IB100 MG PO; +LEVOFLOXACIN500 MG PO; +LIPITOR10 MG PO; +LIPITOR20 MG PO; +MOBIC7.5 MG; +MYRBETRIQ25 MG PO; +TAMIFLU75 MG PO; +VITAMIN D250000 UNIT PO; +ZANTAC300 MG PO; +ZYRTEC10 MG PO
[2018-05-06 20:04] VITALS: BP 134/66
--- NOTE | 2018-05-06 20:30 | NUR ---
PT IS RESTING IN BED WITH EYES OPEN. ALERT AND ORIENTED X 3. SHE STATES SHE IS JUST TO WEAK FROM HER HOSPITAL STAY TO WALK, SO SHE IS REQUIRED TO USE A BEDPAN AT ALL TIMES. SHE REQUESTED TO HAVE NO MALE CAREGIVERS TO ASSIST HER. SR'S ARE UP X 1 IN BED. CALL LIGHT AND BEDSIDE TABLE ARE WITHIN EASY REACH.
--- NOTE | 2018-05-06 23:44 | NUR ---
PT IS RESTING QUIETLY IN BED WITH EYES CLOSED. NO DISTRESS NOTED.
--- NOTE | 2018-05-07 02:20 | NUR ---
RESTING IN BED WITH EYES CLOSED.
--- NOTE | 2018-05-07 02:49 | NUR ---
THE PATIENT APPEARS TO BE SLEEPING COMFORTABLY. BED IS IN THE LOW POSITION WITH SIDERAILS X2 AND CALL LIGHT WITHIN REACH.
[2018-05-07 07:23] LABS: BASOPHILS 0 % (0-2); EOSINOPHILS 2.4 % (0-7); HEMATOCRIT 32.2 % (36.0-48.0); HEMOGLOBIN 10.5 g/dL (12-16); IMMATURE GRANULOCYTES 0.8 % (0-5); MCH 28.5 pg (26.0-34.0); MCHC 32.6 g/dL (31.0-37.0); MCV 87.5 fL (80.0-100.0); MEAN PLATELET VOLUME 9.1 fL (7.4-10.4); MONOCYTES 13.6 % (2-11); NEUTROPHILS 45.2 % (40-80); RBC 3.68 10x6/uL (4.00-5.40); RDW 14.2 % (11.5-14.5); WBC 3.7 10x3/uL (4.8-10.8)
[2018-05-07 07:41] VITALS: BP 118/67
[2018-05-07 07:49] LABS: PLATELET COUNT 153 10x3/uL (130-400)
[2018-05-07 07:52] LABS: ANION GAP 16.3 mmol/L (8-16); CALCIUM 9.2 mg/dL (8.5-10.1); CARBON DIOXIDE 25.2 mmol/L (21.0-32.0); CREATININE - SERUM 0.8 mg/dL (0.6-1.3); POTASSIUM - SERUM 3.5 mmol/L (3.5-5.1)
[2018-05-07 13:10] VITALS: Ht 157.5 cm; Wt 65.8 kg
--- NOTE | 2018-05-07 15:12 | NUR ---
NOW LAYING DOWN IN BED. HAS BEEN UP IN WC IN ROOM FOR LAST LITTLE WHILE. MAX ASST TO STAND AND TRANSFER. CALL LIGHT IN REACH
--- NOTE | 2018-05-07 19:30 | NUR ---
PT REMAINS ON DROPLET PRECAUTIONS, UP TO TOILET, NO NEEDS NOTED, FLUIDS AND CALL LIGHT WITHIN REACH
[2018-05-07 20:00] VITALS: BP 113/58
--- NOTE | 2018-05-08 05:03 | NUR ---
PT ASLEEP NO NEEDS NOTED FLUIDS AND CALL LIGHT WITHIN REACH
[2018-05-08 07:15] LABS: CALC OSMOLALITY 284 mosm/kg (275-300); CALCIUM 8.9 mg/dL (8.5-10.1); CARBON DIOXIDE 25.5 mmol/L (21.0-32.0); CHLORIDE - SERUM 105 mmol/L (98-107); CREATININE - SERUM 0.6 mg/dL (0.6-1.3); GLUCOSE 126 mg/dL (74-106); POTASSIUM - SERUM 3.4 mmol/L (3.5-5.1); SODIUM 142 mmol/L (136-145); UREA NITROGEN 13 mg/dL (7-18); eGFR NON AFRICAN AMERICAN > 90 mL/min (90-120)
[2018-05-08 07:20] LABS: BASOPHILS 0.2 % (0-2); EOSINOPHILS 2.9 % (0-7); HEMATOCRIT 32.2 % (36.0-48.0); HEMOGLOBIN 10.5 g/dL (12-16); IMMATURE GRANULOCYTES 0.9 % (0-5); LYMPHOCYTES 31.6 % (15-50); MCH 28.3 pg (26.0-34.0); MCHC 32.6 g/dL (31.0-37.0); MCV 86.8 fL (80.0-100.0); MEAN PLATELET VOLUME 9.1 fL (7.4-10.4); MONOCYTES 14.9 % (2-11); NEUTROPHILS 49.5 % (40-80); PLATELET COUNT 175 10x3/uL (130-400); RBC 3.71 10x6/uL (4.00-5.40); RDW 14.2 % (11.5-14.5); WBC 4.6 10x3/uL (4.8-10.8)
[2018-05-08 08:00] VITALS: BP 142/58
--- NOTE | 2018-05-08 19:58 | NUR ---
PT IN BED ON PHONE, EARLIER SUPPOSITORY HAS BEEN EFFECTIVE, FLUIDS AND CALL LIGHT WITHIN REACH
[2018-05-08 21:37] VITALS: BP 140/66
[2018-05-09 08:00] VITALS: BP 121/58
--- NOTE | 2018-05-09 08:45 | NUR ---
SPOKE WITH ABELINO DENT. PT ISOLATION REMOVED.
--- NOTE | 2018-05-09 09:38 | NUR ---
PT AM MEDS ADMINSTERED. PT DENIES NEEDS. WCTM.
--- NOTE | 2018-05-09 14:00 | NUR ---
Nutrition Follow Up: Pt was asleep at the time of RD visit. Interview deferred at this time. Diet: Regular PO Intake: 42% meal avg No BM since admit Meds and labs reviewed Rec continue current diet. Will order Ensure BID. RD following.
--- NOTE | 2018-05-09 14:25 | NUR ---
PT PLACED IN CONTACT ISOLATION PER ABELINO MANZANARES FOR ESBL IN URINE.
--- NOTE | 2018-05-09 19:08 | NUR ---
GREETED PATIENT AND INTRODUCED MYSELF HER NURSE FOR THE EVENING. PATIENT IS LAYING IN BED WATCHING TV AND DENIES ANY NEEDS AT THIS TIME. CALL LIGHT IN REACH.
[2018-05-09 19:30] VITALS: BP 117/54
--- NOTE | 2018-05-09 20:12 | NUR ---
ASSISTED PATIENT TO BATHROOM USING WHEELCHAIR. PATIENT BACK TO BED AND REPOSITIONED FOR COMFORT. CALL LIGHT IN REACH.
--- NOTE | 2018-05-10 01:40 | NUR ---
PATIENT AWAKE AND HAD INCONTINENT ACCIDENT. PATIENT SHOWER AND COMPLETE LINEN CHANGE PER SHOWER SCHEDULE. PATIENT BACK TO BED AND REPOSITIONED FOR COMFORT. CALL LIGHT IN REACH.
--- NOTE | 2018-05-10 04:19 | NUR ---
PATIENT ASLEEP WITH EYES CLOSED LAYING IN SUPINE POSITION. HOB AT 25 DEGREES. RESPIRATIONS EVEN. NO S/S OF DISTRESS. CALL LIGHT IN REACH.
--- NOTE | 2018-05-10 05:45 | NUR ---
PATIENT AWAKE AND ASSISTED TO BATHROOM. HAD INCONTINENT ACCIDENT. LINENS CHANGED. PATIENT BACK TO BED AND REPOSITIONED FOR COMFORT LAYING ON RIGHT SIDE. CALL LIGHT IN REACH.
[2018-05-10 06:52] LABS: BASOPHILS 0 % (0-2); HEMATOCRIT 31.3 % (36.0-48.0); HEMOGLOBIN 10.2 g/dL (12-16); IMMATURE GRANULOCYTES 1.1 % (0-5); LYMPHOCYTES 35.8 % (15-50); MCH 28.3 pg (26.0-34.0); MCHC 32.6 g/dL (31.0-37.0); MCV 86.9 fL (80.0-100.0); MEAN PLATELET VOLUME 9.2 fL (7.4-10.4); MONOCYTES 15.3 % (2-11); NEUTROPHILS 45.8 % (40-80); RDW 14.3 % (11.5-14.5); WBC 4.4 10x3/uL (4.8-10.8)
[2018-05-10 07:15] LABS: PLATELET COUNT 219 10x3/uL (130-400)
[2018-05-10 07:29] LABS: CALC OSMOLALITY 282 mosm/kg (275-300); CALCIUM 8.9 mg/dL (8.5-10.1); CARBON DIOXIDE 25.2 mmol/L (21.0-32.0); CHLORIDE - SERUM 104 mmol/L (98-107); CREATININE - SERUM 0.7 mg/dL (0.6-1.3); GLUCOSE 104 mg/dL (74-106); POTASSIUM - SERUM 3.5 mmol/L (3.5-5.1); SODIUM 141 mmol/L (136-145); UREA NITROGEN 17 mg/dL (7-18); eGFR NON AFRICAN AMERICAN 84 mL/min (90-120)
--- NOTE | 2018-05-10 08:07 | NUR ---
PT SITTING UP EATING BREAKFAST. ASSISTED PT WITH SET UP. PT DENIES FURTHER NEEDS. WCTM.
[2018-05-10 09:20] VITALS: BP 129/53
--- NOTE | 2018-05-10 15:51 | NUR ---
PATIENT ADMITTED TO REHAB FROM ACUTE FLOOR. SHE IS A RESIDENT OF [facility]. HER PCP IS DR. NELSON. DME AT HOME IS A CANE AND A ROLLING WALKER. WILL CONTINUE TO FOLLOW WITH PATIENT AND WILL ASSIST WITH DISCHARGE NEEDS.
--- NOTE | 2018-05-10 19:52 | NUR ---
GREETED PATIENT AND INTRODUCED MYSELF HER NURSE FOR THE EVENING. PATIENT IS LAYING IN BED RESTING. DENIES ANY NEEDS AT THIS TIME. CALL LIGHT IN REACH.
[2018-05-10 21:21] VITALS: BP 115/80
--- NOTE | 2018-05-10 22:15 | NUR ---
ASSISTED PATIENT TO BATHROOM USING WHEELCHAIR. PATIENT BACK TO BED AND REPOSTIONED FOR COMFORT. CALL LIGHT IN REACH.
--- NOTE | 2018-05-10 22:38 | NUR ---
ADMINISTERED PRN SUPPOSITORY. PATIENT TOLERATED PROCEDURE AND INSTRUCTED TO HOLD LONG POSSIBLE BEFORE EXPELLING. CALL LIGHT IN REACH.
--- NOTE | 2018-05-10 23:23 | NUR ---
PATIENT ATTEMPTED TO GET OUT OF BED BY HERSELF AND WAS TOO WEAK. ASSISTED PATIENT TO FLOOR TO KEEP FROM FALLING. NO INJURIES OCCURIED. PATIENT BACK TO WHEELCHAIR AND ASSISTED TO BATHROOM.
--- NOTE | 2018-05-11 01:09 | NUR ---
PATIENT ASLEEP WITH EYES CLOSED LAYING IN SUPINE POSITION. HOB AT 30 DEGREES. RESPIRATIONS EVEN. NO S/S OF DISTRESS. CALL LIGHT IN REACH.
--- NOTE | 2018-05-11 02:02 | NUR ---
ASSISTED PATIENT TO BATHROOM USING WHEELCHAIR. PATIENT HAD ONE SMALL BM. BACK TO BED AND RESPOSTIONED FOR COMFORT. CALL LIGHT IN REACH.
[2018-05-11 07:45] VITALS: BP 118/64
--- NOTE | 2018-05-11 09:00 | NUR ---
PT AM MEDS ADMINISTERED. PT DENIES NEEDS. WCTM.
--- NOTE | 2018-05-11 20:00 | NUR ---
PATIENT RECEIVED LAYING IN BED WATCHING TV. ASSESSMENT & VITAL SIGNS DONE. PATIENT HAD NO C/O PAIN OR DISTRESS. PATIENT BED LOW. BEDSIDE & CALL LIGHT WITHIN REACH. CONTINUES ON CONTACT ISOLATION. WILL CONTINUE TO MONITOR.
[2018-05-11 20:18] VITALS: BP 106/52
--- NOTE | 2018-05-11 20:24 | NUR ---
PT RESTING IN BED, DENIES NEEDS. REPORTED OFF TO BUFFING WHEEL PRESSER.
--- NOTE | 2018-05-12 00:54 | NUR ---
THE PATIENT APPEARS TO BE SLEEPING COMFORTABLY. BED IS IN THE LOW POSITION WITH SIDERAILS X2 AND CALL LIGHT WITHIN REACH.
--- NOTE | 2018-05-12 07:37 | NUR ---
RECEIVED REPORT. LYING IN BED ON RIGHT SIDE EYES CLOSED RESTING. RR EVEN AND UNLABORED. EASILY AROUSED WITH VERBAL STIMULI. DENIES ANY NEEDS OR PAIN. CALL LIGHT WITHIN REACH, FALL PRECAUTIONS IN PLACE
[2018-05-12 08:14] VITALS: BP 149/62
--- NOTE | 2018-05-12 09:05 | NUR ---
ADMININSTERED MORNING MEDS WHOLE WITHOUT DIFFICULTY. DENIES ANY NEEDS OR PAIN. NO S/S OF ACUTE DISTRESS NOTED. WILL CONTINUE TO MONITOR
--- NOTE | 2018-05-12 12:49 | NUR ---
SITTING UP IN W/C EATING LUNCH. DENIES ANY NEEDS OR PAIN. CALL LIGHT WITHIN REACH, W/C BRAKES LOCKED
[2018-05-12 16:16] VITALS: BP 117/56
--- NOTE | 2018-05-12 17:23 | NUR ---
ASSISTED TO RESTROOM WITH SBA.
[2018-05-12 19:32] VITALS: BP 140/80
--- NOTE | 2018-05-12 19:44 | NUR ---
AWAKE AND ALERT. SITTING IN WHEELCHAIR IN ROOM. NO DISTRESS NOTED. CALL LIGHT IN REACH.
--- NOTE | 2018-05-13 01:19 | NUR ---
RESTING IN BED WITH EYES CLOSED. RESPIRATIONS UNLABORED. NO DISTRESS NOTED.
--- NOTE | 2018-05-13 03:44 | NUR ---
CONTINUES RESTING IN BED WITH NO DISTRESS NOTED. CALL LIGHT IN REACH.
--- NOTE | 2018-05-13 05:37 | NUR ---
ASSISTED TO BATHROOM AND BACK TO BED. RESPIRATIONS UNLABORED. NO DISTRESS NOTED. CONTACT ISOLATION INPLACE.
[2018-05-13 07:17] LABS: BASOPHILS 0.2 % (0-2); EOSINOPHILS 2.3 % (0-7); HEMATOCRIT 33.3 % (36.0-48.0); HEMOGLOBIN 10.6 g/dL (12-16); IMMATURE GRANULOCYTES 0.4 % (0-5); LYMPHOCYTES 29.5 % (15-50); MCH 28.1 pg (26.0-34.0); MCHC 31.8 g/dL (31.0-37.0); MCV 88.3 fL (80.0-100.0); MEAN PLATELET VOLUME 8.8 fL (7.4-10.4); MONOCYTES 11.5 % (2-11); NEUTROPHILS 56.1 % (40-80); RBC 3.77 10x6/uL (4.00-5.40); RDW 14.4 % (11.5-14.5); WBC 5.3 10x3/uL (4.8-10.8)
[2018-05-13 07:29] LABS: PLATELET COUNT 271 10x3/uL (130-400)
[2018-05-13 07:41] LABS: CALC OSMOLALITY 281 mosm/kg (275-300); CHLORIDE - SERUM 103 mmol/L (98-107); CREATININE - SERUM 0.7 mg/dL (0.6-1.3); GLUCOSE 118 mg/dL (74-106); POTASSIUM - SERUM 3.8 mmol/L (3.5-5.1); SODIUM 141 mmol/L (136-145); UREA NITROGEN 13 mg/dL (7-18); eGFR NON AFRICAN AMERICAN 84 mL/min (90-120)
[2018-05-13 08:31] VITALS: BP 135/61
--- NOTE | 2018-05-13 09:10 | NUR ---
PT AM MEDS ADMINSITERED. PT OLESYA NEEDS. WCTM.
[2018-05-13 20:00] VITALS: BP 112/50
--- NOTE | 2018-05-13 20:06 | NUR ---
REST IN BED, DENIES NEEDS THIS TIME, CALL LIGHT IN REACH.
--- NOTE | 2018-05-13 22:00 | NUR ---
PT ON ISOLATION CONTACT PRECAUTIONS ESBL IN URINE, NO NEEDS NOTED, FLUIDS AND CALL LIGHT WITHIN REACH
--- NOTE | 2018-05-14 00:23 | NUR ---
REST IN BED, RESP EVEN, NO MDISTRESS.CALL LIGHT IN REACH.
--- NOTE | 2018-05-14 04:34 | NUR ---
REST IN BED, CALL LIGHT IN REACH.
--- NOTE | 2018-05-14 08:15 | NUR ---
PT RESTING IN BED WITH EYES OPEN CALL LIGHT IN REACH NO PROBLEMS WILL MONITER
--- NOTE | 2018-05-14 08:15 | NUR ---
PT RESTING IN BED WITH EYES OPEN CALL LIGHT IN REACH NO PROBLEMS WILL MONITER
[2018-05-14 08:20] VITALS: BP 120/60
--- NOTE | 2018-05-14 17:01 | NUR ---
PT RESTING IN BED WITH EYES OPEN CALL LIGHT IN REACH WILL MONITER
--- NOTE | 2018-05-14 17:44 | NUR ---
SITTING UP IN CHAIR.CL IN REACH.
--- NOTE | 2018-05-14 19:58 | NUR ---
GREETED PATIENT AND INTRODUCED MYSELF HER NURSE. PATIENT IS SITTING IN WHEELCHAIR AND DENIES ANY NEEDS AT THIS TIME. CALL LIGHT IN REACH.
[2018-05-14 20:00] VITALS: BP 126/61
--- NOTE | 2018-05-15 01:32 | NUR ---
PATIENT ASLEEP WITH EYES CLOSED LAYING IN SUPINE POSITION. HOB AT 30 DEGREES. RESPIRATIONS EVEN. NO S/S OF DISTRESS. CALL LIGHT IN REACH.
--- NOTE | 2018-05-15 03:40 | NUR ---
PATIENT ASSISTED TO BATHROOM USING WHEELCHAIR. PATIENT CLEANED OF INCONTINENT URINE AND BACK TO BED AND REPOSITIONED FOR COMFORT. CALL LIGHT IN REACH.
--- NOTE | 2018-05-15 05:54 | NUR ---
PATIENT ASLEEP WITH EYES CLOSED LAYING IN SUPINE POSITION. HOB AT 30 DEGREES. RESPIRATIONS EVEN. NO S/S OF DISTRESS. CALL LIGHT IN REACH.
--- NOTE | 2018-05-15 07:25 | NUR ---
TOILETED PT. PT SITTING UP IN WHEELCHAIR. CALL LIGHT IN REACH. PT DENIES NEEDS OR PAIN. WILL CONTINUE TO MONITOR.
[2018-05-15 07:48] LABS: CALC OSMOLALITY 283 mosm/kg (275-300); CALCIUM 8.8 mg/dL (8.5-10.1); CARBON DIOXIDE 25.7 mmol/L (21.0-32.0); CHLORIDE - SERUM 106 mmol/L (98-107); CREATININE - SERUM 0.7 mg/dL (0.6-1.3); GLUCOSE 115 mg/dL (74-106); POTASSIUM - SERUM 3.8 mmol/L (3.5-5.1); SODIUM 142 mmol/L (136-145); UREA NITROGEN 13 mg/dL (7-18); eGFR NON AFRICAN AMERICAN 84 mL/min (90-120)
[2018-05-15 07:50] LABS: BASOPHILS 0.2 % (0-2); EOSINOPHILS 2.5 % (0-7); HEMATOCRIT 29.8 % (36.0-48.0); HEMOGLOBIN 9.7 g/dL (12-16); IMMATURE GRANULOCYTES 0.5 % (0-5); LYMPHOCYTES 33.7 % (15-50); MCH 28.5 pg (26.0-34.0); MCHC 32.6 g/dL (31.0-37.0); MCV 87.6 fL (80.0-100.0); MEAN PLATELET VOLUME 8.9 fL (7.4-10.4); MONOCYTES 14.4 % (2-11); NEUTROPHILS 48.7 % (40-80); PLATELET COUNT 236 10x3/uL (130-400); RDW 14.3 % (11.5-14.5); WBC 4.4 10x3/uL (4.8-10.8)
[2018-05-15 08:00] VITALS: BP 127/65
--- NOTE | 2018-05-15 12:00 | NUR ---
PT SITTING UP IN WHEELCHAIR. CALL LIGHT IN REACH. DENIES NEEDS OR PAIN. WILL CONTINUE TO MONITOR.
--- NOTE | 2018-05-15 12:15 | NUR ---
SITTING UP IN WC EATING LUNCH.CL IN REACH.
--- NOTE | 2018-05-15 17:02 | NUR ---
CARE TEAM MEETING: PATIENT PROGRESSING WELL IN THEAPY. TENATIVE DISCHARGE DATE IS 05/17/18 AND WILL RETURN TO HER HOME AT [facility] WITH HOME HEALTH. WILL CONTINUE TO FOLLOW WITH PATIENT.
--- NOTE | 2018-05-15 17:24 | NUR ---
PT SITTING UP IN WHEELCHAIR. CALL LIGHT IN REACH. PT DENIES NEEDS OR PAIN.
--- NOTE | 2018-05-15 19:22 | NUR ---
AWAKE AND ALERT. SITTING IN WHEELCHAIR IN ROOM. RESPIRATIONS UNLABORED. NO DISTRESS NOTED. CALL LIGHT IN REACH.
[2018-05-15 19:26] VITALS: BP 126/57
--- NOTE | 2018-05-16 00:01 | NUR ---
RESTING IN BED WITH EYES CLOSED AND RESPIRATIONS UNLABORED. NO DISTRESS NOTED. CALL LIGHT IN REACH.
--- NOTE | 2018-05-16 02:01 | NUR ---
RESTING IN BED WITH EYES CLOSED. RESPIRATIONS UNLABORED. NO DISTRESS NOTED. CALL LIGHT IN REACH. REMAINS IN COMTACT ISOLATION.
--- NOTE | 2018-05-16 05:13 | NUR ---
QUIET HOURS. NO ACUTE CHANGES IN CONDITION THIS SHIFT. NO DISTRESS NOTED. REMAINS IN CONTACT ISOLATION.
[2018-05-16 08:00] VITALS: BP 124/64
--- NOTE | 2018-05-16 10:26 | NUR ---
SITTING UP IN WC IN THERAPY ROOM. DENIES PAIN OR NEEDS.
--- NOTE | 2018-05-16 18:49 | NUR ---
SITTING UP IN WC IN ROOM. HAS NOT HAD BM SO FAR AFTER SUPPISITORY. DENIES PAIN. CALL LIGHT IN REACH
--- NOTE | 2018-05-16 20:03 | NUR ---
AWAKE AND ALERT. SITTING IN WHEELCHAIR IN ROOM WATCHING TV. RESPIRATIONS UNLABORED. REMAINS IN CONTACT ISOLATION. NO NEEDS VOICED. NO DISTRESS NOTED.
[2018-05-16 21:20] VITALS: BP 140/70
--- NOTE | 2018-05-16 22:39 | NUR ---
LATE ENTRY FOR 2024. PATIENT NOTED ON FLOOR BY MANAGER COUNCIL. PT STATED SHE WAS COMING OUT OF BATHROOM AND CHAIR FLIPPED ON HER. NOTED 3CM BRUISE AND REDNESS TO BACK OF HEAD. ASSITED BACK TO BED. ALERT AND ORIENTED X 4. PEARLA. PLAY READER EQUAL. ABLE TO MOVE EXTREMITIES ON COMMAND. VITAL SIGNS TAKEN.
--- NOTE | 2018-05-16 22:41 | NUR ---
AT 2034 JOHN PAUL BRAGG APRN CALLED AND CT OF THE HEAD ORDERED WITHOUT CONTRAST. FAMILY GUME HOLM NOTIFIED. HOUSE SUPERVISOIR JOSLYN NOTIFIED. I PLACED CALL TO RADIOLOGY TO NOTIFY THEM OF ORDER.
--- NOTE | 2018-05-16 22:42 | NUR ---
2135 PATIENT TAKEN TO IMAGING DEPARTMENT FOR CT SCAN OF HEAD. TOLERTED WELL. ASSISTED TO BATHROOM AFTER RETURNING TO ROOM. PATIENT AGAIN GOT UP OFF TOILET WITH CALLING NURSE WITH THIS NURSE STANDING IN BATHROOM DOORWAY. REMINDED TO ALWAYS CALL FOR ASSISTANCE BEFORE TRANSFERING. VOICES UNDERSTANDING.
--- NOTE | 2018-05-17 01:49 | NUR ---
RESTING IN BED WITH EYES CLOSED AND RESPIRATIONS UNLABORED. NO DISTRESS NOTED.
--- NOTE | 2018-05-17 03:03 | NUR ---
EASILY AWAKENS ORIENTED X 4. RESPIRATIONS UNLABORED. PEARLA. ROLLER STAINER EQUAL. MOVES EXTREMITIES ON COMMAND. DENIES PAIN. NO DISTRESSN NOTED.
--- NOTE | 2018-05-17 03:25 | NUR ---
CT RESULTS RECIEVED FROM IMAGING AND COPY ON CHART. RESULT IMMPRESSION WAS NO ACUTE INTRACRANIEL PROCESS.
--- NOTE | 2018-05-17 05:56 | NUR ---
SON GUME HOLM AND JUDI SEVILLA NOTIFED OF CT RESULTS. JUDI HAD SOME CONCERNS ABOUT PATIENT LIIVING AT HOME AND BEING ABLE TO CARE FOR HERSELF AFTER DISCHARGE SCHEDULED FOR TODAY. I ASK JUDI TO CALL LATASHA FOR CASE MANAGEMENT CONCERNS LATER THIS MORNING. SHE VOICED UNDERSTANDING. PATIENT ALERT AND ORIENTED. PUPILS EQUAL AND REACTIVE. NO DISTRESS NOTED.
[2018-05-17 07:45] LABS: BASOPHILS 0.2 % (0-2); EOSINOPHILS 2.8 % (0-7); HEMATOCRIT 31.4 % (36.0-48.0); HEMOGLOBIN 10.2 g/dL (12-16); IMMATURE GRANULOCYTES 0.4 % (0-5); LYMPHOCYTES 25.3 % (15-50); MCH 28.2 pg (26.0-34.0); MCHC 32.5 g/dL (31.0-37.0); MCV 86.7 fL (80.0-100.0); MEAN PLATELET VOLUME 8.9 fL (7.4-10.4); MONOCYTES 13.1 % (2-11); NEUTROPHILS 58.2 % (40-80); PLATELET COUNT 248 10x3/uL (130-400); RBC 3.62 10x6/uL (4.00-5.40); RDW 14.3 % (11.5-14.5); WBC 4.7 10x3/uL (4.8-10.8)
[2018-05-17 07:56] LABS: CALC OSMOLALITY 287 mosm/kg (275-300); CALCIUM 9.1 mg/dL (8.5-10.1); CHLORIDE - SERUM 105 mmol/L (98-107); CREATININE - SERUM 0.7 mg/dL (0.6-1.3); GLUCOSE 126 mg/dL (74-106); POTASSIUM - SERUM 3.7 mmol/L (3.5-5.1); SODIUM 143 mmol/L (136-145); UREA NITROGEN 15 mg/dL (7-18); eGFR NON AFRICAN AMERICAN 84 mL/min (90-120)
[2018-05-17 08:00] VITALS: BP 128/68
--- NOTE | 2018-05-17 10:00 | NUR ---
PATIENT DISCHARGING BACK TO [facility] WHERE SHE HAS HER HOME. [facility] WILL PROVIDE THERAPY AT HOME. [facility] WILL SEE PATIENT FOR FOLLOW UP AND PATIENT WILL SEE DR. NELSON NEEDED. PATIENT CHOICE FORM FOR HOME HEALTH AND IM[facility] FORMS SIGNED, COPIES MADE FOR PATIENT AND FILED IN CHART. DISCHARGE INSTRUCTIONS WITH [facility] [employer] FAXED TO PCP, HOUSE CALLS AND HOME HEALTH
--- NOTE | 2018-05-17 13:44 | NUR ---
RECIEVED CALL FROM MARA ALY IN ER REGARDING PATIENT. SHE HAD DISHCARGED HOME THIS AM AND FAMILY REPORTS THAT WHILE SHE WAS HOME SHE HAD FALLEN. GRANDDAUGHTER HAS CALLED EMS. REFERRAL WILL BE FAXED TO [facility]. CM IN ER HAS BEEN NOTIFIED
--- NOTE | 2018-05-17 14:14 | MORECARE ---
CASE MANAGEMENT DISCHARGE SUMMARY PATIENT: ARCELIA RUBIN UNIT: [id number] ADM DATE: 05/06/18 AGE: 87 : 31 SEX: F ROOM/BED: D.1118 AUTHOR: CADEN LIANG PHYSICIAN: REFERRING PHYSICIAN: SYMONE KNOWLES MD DATE OF SERVICE: 05/17/18 Discharge Plan Patient Name: ARCELIA RUBIN Facility[facility]:[place] : 1930 Planned Disposition: Anticipated Discharge Date: Discharge Date: Expected LOS: Initial Reviewer: [email or web address] Initial Review Date: 05/06/2018 Generated: 05/17/18 3:14 pm Comments DCP- Discharge Planning Updated by [email or web address]: Giovana Mendoza on 05/17/18 1:[address] CM received a phone call from patient's MD Dr. Moore, with a request to facilitate Nursing/Rehab for this patient. CM left a for Jacquie ( Rehab) regarding same and request broaching subject to patient. Contacted [facility] to provide same information. Giovana Mendoza RN, CM Patient Name: ARCELIA RUBIN Page [phone] at 1414 All edits/amendments must be made on the electronic document DICTATION DATE: 05/17/181413 SALES CLERK: JOSIAH 05/17/18 141 RPT#: [id number] DC DATE: STATUS: ADM IN [facility] [address] [place] [address] END OF REPORT
== END 2018-05-17 10:08 | disposition home health service (06) | DRG 92 ==
LOC: D.REHAB 18:55
PROVIDERS: ADMIT Emergency Medicine; ATTEND Emergency Medicine
DX: G72.89 Other specified myopathies (principal); N39.0 Urinary tract infection, site not specified; J11.1 Influenza due to unidentified influenza virus with other respiratory manifestations; E86.0 Dehydration; K21.9 Gastro-esophageal reflux disease without esophagitis; M19.90 Unspecified osteoarthritis, unspecified site; F32.9 Major depressive disorder, single episode, unspecified; R53.81 Other malaise; R06.02 Shortness of breath; E11.65 Type 2 diabetes mellitus with hyperglycemia; B96.1 Klebsiella pneumoniae [K. pneumoniae] as the cause of diseases classified elsewhere; G89.29 Other chronic pain; I25.10 Atherosclerotic heart disease of native coronary artery without angina pectoris

== ENCOUNTER 2018-05-17 14:08 | Inpatient (IN) | payer MEDICARE, OTHER ==
[~2018-05-17] VITALS: Ht 157.5 cm; Wt 61.4 kg
--- NOTE | 2018-05-17 15:01 | NUR ---
PT IN WITH C/O WEAKNESS, FELL LAST NIGHT IN REHAB. PT WAS DISCHARGED FROM INPT REHAB THIS MORNING, GRANDDAUGHTER STATES THAT SHE HAS BEEN WEAK. PATIENT C/O LOW BACK PAIN AND BILATERAL HIP PAIN, STATES SHE HAS GENERALIZED WEAKNESS.
[2018-05-17 15:42] LABS: BASOPHILS 0.4 % (0-2); HEMATOCRIT 30.4 % (36.0-48.0); IMMATURE GRANULOCYTES 0.2 % (0-5); LYMPHOCYTES 26.7 % (15-50); MCH 28.6 pg (26.0-34.0); MCHC 32.9 g/dL (31.0-37.0); MCV 86.9 fL (80.0-100.0); MEAN PLATELET VOLUME 8.8 fL (7.4-10.4); MONOCYTES 14.3 % (2-11); NEUTROPHILS 55.4 % (40-80); PLATELET COUNT 204 10x3/uL (130-400); RDW 14.3 % (11.5-14.5)
[2018-05-17 16:01] LABS: ALBUMIN 3.5 g/dL (3.4-5.0); ANION GAP 16.2 mmol/L (8-16); BILIRUBIN - TOTAL 0.64 mg/dL (0.2-1.3); CARBON DIOXIDE 26.5 mmol/L (21.0-32.0); CREATININE - SERUM 0.8 mg/dL (0.6-1.3); POTASSIUM - SERUM 3.7 mmol/L (3.5-5.1); PROTEIN - SERUM 6.9 g/dL (6.4-8.2)
[2018-05-17 16:30] VITALS: BP 136/74
--- NOTE | 2018-05-17 16:47 | NUR ---
PT TO BE ADMITTED, FAMILY AT BEDSIDE.
[2018-05-17 17:28] VITALS: BP 143/70
[2018-05-17 17:37] LABS: APPEARANCE CLEAR (CLEAR); COLOR YELLOW (YELLOW); GLUCOSE NEGATIVE (NEGATIVE); KETONE SMALL mg/dL (NEGATIVE); NITRITE NEGATIVE (NEGATIVE); PROTEIN NEGATIVE (NEGATIVE); UROBILINOGEN NORMAL (NORMAL)
[2018-05-17 17:38] LABS: BILIRUBIN NEGATIVE (NEGATIVE)
--- NOTE | 2018-05-17 18:43 | MORECARE ---
CASE MANAGEMENT DISCHARGE SUMMARY PATIENT: ARCELIA RUBIN UNIT: [id number] ADM DATE: 05/17/18 AGE: 87 : 31 SEX: F ROOM/BED: D.1211 AUTHOR: GARTH,DOC PHYSICIAN: REFERRING PHYSICIAN: SYMONE KNOWLES MD DATE OF SERVICE: 05/17/18 Discharge Plan Patient Name: ARCELIA RUBIN Facility: [facility]:[place] : 1930 Planned Disposition: Anticipated Discharge Date: Discharge Date: Expected LOS: 0 Initial Reviewer: [email or web address] Initial Review Date: 05/17/2018 Generated: 05/17/18 7:42 pm Comments DCP- Discharge Planning Updated by [email or web address]: Giovana Mendoza on 05/17/18 5:[address] [facility] Shannon Edwardin, [facility] and was informed that patient will be accepted on Sunday morning. Contacted nursing with [facility] to inquire type of bed patient would going into, but nurse was unable to tell me. CM will contact again on Sunday for type of bed and transportation arrangements. Giovana Mendoza RN, CM DCP- Discharge Planning Updated by [id number]: Giovana Mendoza on 05/17/18 4:[address] CM spoke with patient and g/dtr Jena Canas ([phone]), regarding [facility] in [facility]. Patient is in agreement to same. Patient Choice form signed per g.dtr (POA). CM contacted Peggy (admissions co-ord) regarding, faxed required information. After review per Peggy, the facility is unable to accept patient, due to recent Influenza diagnosis and need to continue Droplet Isolatiion at the facility. This information was relayed to the patient and g.dtr. Jena is attempting to get in touch with other family members for advice. Patient currently lives at [facility]. [facility] arranged with [facility] prior to discharge from rehab. Giovana Mendoza RN, CM CM revisited patient and g/dtr with a list of nursing facilities in [place] area. Encouraged g/dtr to visit these facilities in order to make a decision. Also, suggested private caregivers if unable to locate an agreeable facility. Patient will be admitted to an Observation bed at this time. Giovana Mendoza RN, CM Patient Name: ARCELIA RUBIN Page [id number] at 1843 All edits/amendments must be made on the electronic document DICTATION DATE: 05/17/181841 UTILITY SPRAY OPERATOR: JOSIAH 05/17/181841 RPT#: [id number] DC DATE: STATUS: ADM IN [facility] [address] [place] [address] END OF REPORT
--- NOTE | 2018-05-17 19:05 | NUR ---
GREETED PATIENT AND ORIENTATED TO ROOM AND SURROUNDINGS. PATIENT DENIES ANY FURTHER NEEDS AT THIS TIME. CALL LIGHT IN REACH.
--- NOTE | 2018-05-17 19:32 | MORECARE ---
CASE MANAGEMENT DISCHARGE SUMMARY PATIENT: ARCELIA RUBIN UNIT: [id number] ADM DATE: 05/17/18 AGE: 87 : 31 SEX: F ROOM/BED: D.1211 AUTHOR: GARTH,DOC PHYSICIAN: REFERRING PHYSICIAN: SYMONE KNOWLES MD DATE OF SERVICE: 05/17/18 Discharge Plan Patient Name: ARCELIA RUBIN Facility: [facility]:[place] : 1930 Planned Disposition: Anticipated Discharge Date: Discharge Date: Expected LOS: 0 Initial Reviewer: [email or web address] Initial Review Date: 05/17/2018 Generated: 05/17/18 8:31 pm Comments DCP- Discharge Planning Updated by [email or web address]: Giovana Mendoza on 05/17/18 5:[address] [facility] Shannon Edwardin, [facility] and was informed that patient will be accepted on Sunday morning. Contacted nursing with [facility] to inquire type of bed patient would going into, but nurse was unable to tell me. CM will contact again on Sunday for type of bed and transportation arrangements. Giovana Mendoza RN, CM DCP- Discharge Planning Updated by [email or web address]: Giovana Mendoza on 05/17/18 4:[address] CM spoke with patient and g/dtr Jena Canas ([phone]), regarding [facility]. Patient is in agreement to same. Patient Choice form signed per g.dtr (POA). CM contacted Peggy (admissions co-ord) regarding, faxed required information. After review per Peggy, the facility is unable to accept patient, due to recent Influenza diagnosis and need to continue Droplet Isolatiion at the facility. This information was relayed to the patient and g.dtr. Jena is attempting to get in touch with other family members for advice. Patient currently lives at [facility]. [facility] arranged with [facility] prior to discharge from rehab. Giovana Mendoza RN, CM CM revisited patient and g/dtr with a list of nursing facilities in [place] area. Encouraged g/dtr to visit these facilities in order to make a decision. Also, suggested private caregivers if unable to locate an agreeable facility. Patient will be admitted to an Observation bed at this time. Giovana Mendoza RN CM Last DP export: 05/17/18 5:43 pm Patient Name: ARCELIA RUBIN Page [id number] at 1932 All edits/amendments must be made on the electronic document DICTATION DATE: 05/17/181930 HAND ORNAMENT MAKER: JOSIAH 05/17/181930 RPT#: [id number] DC DATE: STATUS: ADM IN [facility] [address] [place] [address] END OF REPORT
[2018-05-17 20:00] VITALS: BP 139/59
--- NOTE | 2018-05-17 20:32 | NUR ---
PT REQUESTED AND PROVIDED EXTRA BLANKET AND FRESH H20, DENIES FURTHER NEEDS, BED IN LOW POSITION, SIDE RAILS X 2, CALL LIGHT IN REACH
--- NOTE | 2018-05-17 21:05 | NUR ---
SPOKE WITH DR KNOWLES REGARDING NEW ARRIVAL TO ROOM 1210 DR KNOWLES STATED CAN RESTART SOME HOME MEDICATIONS TYLENOL #3 AMBIEN 5 MG BENTYL 10 MG TID LIPITOR 5MG QHS WILL PLACE ORDERS
[2018-05-17 22:24] VITALS: BP 139/59; Ht 157.5 cm; Wt 61.4 kg
--- NOTE | 2018-05-18 00:23 | NUR ---
PATIENT ASLEEP WITH EYES CLOSED LAYING IN SUPINE POSITION. HOB AT 30 DEGREES. RESPIRATIONS EVEN. NO SIGNS OF DISTRESS. CALL LIGHT IN REACH.
[2018-05-18 01:30] VITALS: BP 116/61
--- NOTE | 2018-05-18 03:30 | NUR ---
PATIENT CLEANED OF INCONTINENT URINE. COMPLETE BED CHANGE. PATIENT BACK TO BED AND REPOSITIONED FOR COMFORT. CALL LIGHT IN REACH.
--- NOTE | 2018-05-18 03:55 | NUR ---
PATIENT ASLEEP WITH EYES CLOSED LAYING IN SUPINE POSITION. HOB AT 30 DEGREES. RESPIRATIONS EVEN. NO S/S OF DISTRESS. CALL LIGHT IN REACH.
[2018-05-18 04:30] VITALS: BP 129/66
--- NOTE | 2018-05-18 04:35 | NUR ---
PATIENT ASSISTED TO BEDSIDE TOLIET. PATIENT HAD 300 ML OF CLEAR YELLOW URINE. BACK TO BED AND REPOSITIONED FOR COMFORT. CALL LIGHT IN REACH.
[2018-05-18 07:19] LABS: BASOPHILS 0.2 % (0-2); EOSINOPHILS 4.4 % (0-7); HEMATOCRIT 30.8 % (36.0-48.0); HEMOGLOBIN 9.9 g/dL (12-16); IMMATURE GRANULOCYTES 0.2 % (0-5); LYMPHOCYTES 28.5 % (15-50); MCH 28.3 pg (26.0-34.0); MCHC 32.1 g/dL (31.0-37.0); MEAN PLATELET VOLUME 8.9 fL (7.4-10.4); MONOCYTES 15.6 % (2-11); NEUTROPHILS 51.1 % (40-80); PLATELET COUNT 203 10x3/uL (130-400); RDW 14.6 % (11.5-14.5); WBC 4.1 10x3/uL (4.8-10.8)
[2018-05-18 07:23] LABS: ALBUMIN 3.3 g/dL (3.4-5.0); ALKALINE PHOSPHATASE 46 U/L (46-116); ALT (SGPT) 16 U/L (10-68); BILIRUBIN - TOTAL 0.61 mg/dL (0.2-1.3); CALC OSMOLALITY 284 mosm/kg (275-300); CALCIUM 8.5 mg/dL (8.5-10.1); CARBON DIOXIDE 25.3 mmol/L (21.0-32.0); CHLORIDE - SERUM 106 mmol/L (98-107); CREATININE - SERUM 0.7 mg/dL (0.6-1.3); GLUCOSE 105 mg/dL (74-106); MAGNESIUM - SERUM 2.4 mg/dL (1.8-2.4); POTASSIUM - SERUM 3.7 mmol/L (3.5-5.1); PROTEIN - SERUM 6.4 g/dL (6.4-8.2); SODIUM 143 mmol/L (136-145); UREA NITROGEN 13 mg/dL (7-18); eGFR NON AFRICAN AMERICAN 84 mL/min (90-120)
[2018-05-18 07:24] VITALS: BP 140/67
--- NOTE | 2018-05-18 07:40 | NUR ---
ASSESSMENT COMPLETE. IV TO R WRIST PATENT. CONFUSED TO TIME AND SITUATION. UP WITH ASSISTANCE. ZORAIDA MAT IN USE. DENIES ANY NEEDS AT THIS TIME.
--- NOTE | 2018-05-18 10:47 | NUR ---
RESTING QUIETLY WITH EYES CLOSED. RESP EVEN,NONLABORED.
[2018-05-18 11:42] VITALS: BP 116/61
--- NOTE | 2018-05-18 12:04 | NUR ---
SCD'S IN USE TO BILAT LEGS.
[2018-05-18 15:20] VITALS: BP 140/66
--- NOTE | 2018-05-18 17:05 | NUR ---
ASSISTED UP TO BATHROOM. DENIES ANY FURTHER NEEDS AT THIS TIME.
--- NOTE | 2018-05-18 19:29 | NUR ---
PT GRANDDAUGHTER CALLED DESK AND STATED PT NEEDED ASSISTANCE TO BATHROOM. IMMEDIATELY ENTERED PT ROOM AND ASSISTED PT. ASKED PT IF SHE UNDERSTOOD HOW TO USE CALL LIGHT. PT STATES "ITS WAY DOWN THERE" PT THOUGHT SCD MACHINE AT END OF BED WAS CALL LIGHT. INSTRUCTED PT AMERICAN HISTORY TEACHER LIGHT AND HOW TO USE. PT RETURNED DEMONSTRATED. PT BACK IN BED. DENIES NEEDS AT THIS TIME. HAS CALL LIGHT IN HAND. WILL CONTINUE PLAN OF CARE.
[2018-05-18 20:00] VITALS: BP 140/66
--- NOTE | 2018-05-18 21:55 | NUR ---
ADMINETERED HS MEDICATIONS. TOLERATED WELL. ASSISTED WITH BED MCGOWAN.
--- NOTE | 2018-05-18 23:50 | NUR ---
I AGREE WITH THE HOG SCRAPER ASSESSMENT CHARTED THIS SHIFT.
[2018-05-19 00:11] VITALS: BP 138/66
--- NOTE | 2018-05-19 00:13 | NUR ---
PT TALKING IN SLEEP FOR SEVERAL MINUTES OFF AND ON. ASSESSED VITALS AND PT AROUSED AND OPEN EYES THEN WENT BACK TO SLEEP WHILE THIS NURSE FINISHED ASSESSING VITAL SIGNS.
--- NOTE | 2018-05-19 01:48 | NUR ---
CLEANED PT OF INCONTINENT URINE. BED CHANGED PROVIDED. SCD'S ON. NO OTHER NEEDS AT THIS TIME.
[2018-05-19 04:00] VITALS: BP 152/56
--- NOTE | 2018-05-19 06:35 | NUR ---
ASSISTED WITH BED MCGOWAN. VITALS ASSESSED AND IN CHART. TOLERATED AM MEDS. CALL LIGHT IN REACH. DENIES FURTHER NEEDS.
[2018-05-19 07:22] LABS: BASOPHILS 0.5 % (0-2); EOSINOPHILS 4.1 % (0-7); HEMATOCRIT 28.5 % (36.0-48.0); HEMOGLOBIN 9.2 g/dL (12-16); IMMATURE GRANULOCYTES 0.3 % (0-5); LYMPHOCYTES 34.6 % (15-50); MCH 28.4 pg (26.0-34.0); MCHC 32.3 g/dL (31.0-37.0); MEAN PLATELET VOLUME 8.7 fL (7.4-10.4); MONOCYTES 16.8 % (2-11); NEUTROPHILS 43.7 % (40-80); PLATELET COUNT 185 10x3/uL (130-400); RBC 3.24 10x6/uL (4.00-5.40); RDW 14.5 % (11.5-14.5); WBC 3.7 10x3/uL (4.8-10.8)
--- NOTE | 2018-05-19 07:25 | NUR ---
PT RESTING IN BED, EYES OPEN. PT ALERT AND ORIENTED. UP WITH ASSIST. PT INCONTINENT AT TIMES. SCDS PRESENT AND ON. PT HAS ZORAIDA ALARM. PT UP WITH PHYSICAL THERAPY. ON ELECTROLYTE PROTOCOL. PT ACHS. IV TO RIGHT WRIST, NS INFUSING @ 50. SITE PATENT WITHOUT REDNESS OR SWELLING. PT BOWEL SOUNDS HYPOACTIVE ALL QUADRANTS. PT DENIES ANYTHING FURTHER AT THIS TIME. CALL LIGHT IN REACH. WILL CONTINUE TO MONITOR.
[2018-05-19 07:34] LABS: % SATURATION 12 % (15-55); IRON 35 ug/dl (35-150); TOTAL IRON BIND CAPACITY 284 ug/dl (260-445); UNSAT IRON BIND CAPACITY 249 ug/dl (150-375)
[2018-05-19 07:46] LABS: CALC OSMOLALITY 282 mosm/kg (275-300); CALCIUM 8.3 mg/dL (8.5-10.1); CARBON DIOXIDE 24.6 mmol/L (21.0-32.0); CHLORIDE - SERUM 107 mmol/L (98-107); CREATININE - SERUM 0.7 mg/dL (0.6-1.3); FERRITIN 31 ng/mL (3-244); GLUCOSE 111 mg/dL (74-106); MAGNESIUM - SERUM 2.2 mg/dL (1.8-2.4); POTASSIUM - SERUM 3.6 mmol/L (3.5-5.1); SODIUM 142 mmol/L (136-145); UREA NITROGEN 10 mg/dL (7-18); eGFR NON AFRICAN AMERICAN 84 mL/min (90-120)
[2018-05-19 08:00] VITALS: BP 108/69
[2018-05-19 10:57] VITALS: BP 108/69
--- NOTE | 2018-05-19 12:00 | NUR ---
PT CURRENTLY RESTING WITH EYES CLOSED. WILL CTM. CL IN REACH, BED IN LOW.
[2018-05-19 18:26] VITALS: BP 110/58
--- NOTE | 2018-05-19 18:57 | NUR ---
PT RESTING IN BED, EYES OPEN. NO C/O PAIN. NO S/S OF ACUTE DISTRESS NOTED. PT DENIES ANYTHING FURTHER AT THIS TIME. CALL LIGHT IN REACH. WILL CONTINUE TO MONITOR.
--- NOTE | 2018-05-19 18:59 | NUR ---
I have reviewed this patient and I concur with the Shift Assessment completed by the Licensed Practical Nurse today this shift.
--- NOTE | 2018-05-19 18:59 | NUR ---
I have reviewed this patient and I concur with the Shift Assessment completed by the Licensed Practical Nurse today this shift.
--- NOTE | 2018-05-19 19:04 | NUR ---
I have reviewed this patient and I concur with the Shift Assessment completed by the Licensed Practical Nurse today this shift.
--- NOTE | 2018-05-19 19:49 | NUR ---
ASSISTED PATIENT TO AND FROM RESTROOM. PATIENT DENIES OTHER NEEDS AT THIS TIME. BED IN LOWEST POSITION AND CALL LIGHT WITHIN REACH. WILL CONTINUE TO MONITOR.
--- NOTE | 2018-05-19 19:49 | NUR ---
RECIEVED BEDSIDE REPORT. ROUNDS COMPLETED. VSS, AAOX3, RR EVEN AND UNLABORED, NO S/S OF RESPIRATORY DISTRESS. PT STATES SHE FEELS NO PAIN IN HER SACRUM AT THIS TIME. DENIES ANY FURTHER NEEDS. WILL CPOC. CL IN REACH, BED IN LOW, SR UPX2.
[2018-05-19 20:01] VITALS: BP 126/70
[2018-05-20 01:05] VITALS: BP 133/64
[2018-05-20 07:54] VITALS: BP 132/66
[2018-05-20 08:04] LABS: BASOPHILS 0.3 % (0-2); EOSINOPHILS 5.2 % (0-7); HEMATOCRIT 29.3 % (36.0-48.0); HEMOGLOBIN 9.3 g/dL (12-16); IMMATURE GRANULOCYTES 0.3 % (0-5); LYMPHOCYTES 35.2 % (15-50); MCH 28.3 pg (26.0-34.0); MCHC 31.7 g/dL (31.0-37.0); MCV 89.1 fL (80.0-100.0); PLATELET COUNT 198 10x3/uL (130-400); RBC 3.29 10x6/uL (4.00-5.40); RDW 14.8 % (11.5-14.5); WBC 3.3 10x3/uL (4.8-10.8)
[2018-05-20 08:11] LABS: CALC OSMOLALITY 281 mosm/kg (275-300); CALCIUM 8.8 mg/dL (8.5-10.1); CARBON DIOXIDE 23.7 mmol/L (21.0-32.0); CHLORIDE - SERUM 105 mmol/L (98-107); CREATININE - SERUM 0.7 mg/dL (0.6-1.3); GLUCOSE 102 mg/dL (74-106); MAGNESIUM - SERUM 2.1 mg/dL (1.8-2.4); POTASSIUM - SERUM 3.4 mmol/L (3.5-5.1); SODIUM 142 mmol/L (136-145); UREA NITROGEN 10 mg/dL (7-18); eGFR NON AFRICAN AMERICAN 84 mL/min (90-120)
--- NOTE | 2018-05-20 08:17 | MORECARE ---
CASE MANAGEMENT DISCHARGE SUMMARY PATIENT: ARCELIA RUBIN UNIT: [id number] ADM DATE: 05/17/18 AGE: 87 : 31 SEX: F ROOM/BED: D.1211 AUTHOR: GARTH,DOC PHYSICIAN: REFERRING PHYSICIAN: SYMONE KNOWLES MD DATE OF SERVICE: 05/20/18 Discharge Plan Patient Name: ARCELIA RUBIN Facility: [facility]:[place] : 1930 Planned Disposition: Anticipated Discharge Date: Discharge Date: Expected LOS: 0 Initial Reviewer: [email or web address] Initial Review Date: 05/17/2018 Generated: 05/20/18 9:17 am Comments DCP- Discharge Planning Updated by [id number]: Rhonda Han on 05/20/18 7:[address] REFERRAL SENT TO [facility], LEFT MESSAGE FOR PEGGY OR ROSA ISELA TO CALL ME BACK. DCP- Discharge Planning Updated by [id number]: Giovana Mendoza on 05/17/18 4:[address] Sho Canas, [facility] and was informed that patient will be accepted on Sunday morning. Contacted nursing with [facility] to inquire type of bed patient would going into, but nurse was unable to tell me. CM will contact again on Sunday for type of bed and transportation arrangements. Giovana Mendoza RN, CM DCP- Discharge Planning Updated by [id number]: Giovana Mendoza on 05/17/18 3:[address] CM spoke with patient and g/dtr Jena Canas ([phone]), regarding placement in [facility]hab. Patient is in agreement to same. Patient Choice form signed per g.dtr (POA). CM contacted Peggy (admissions co-ord) regarding, faxed required information. After review per Peggy, the facility is unable to accept patient, due to recent Influenza diagnosis and need to continue Droplet Isolatiion at the facility. This information was relayed to the patient and g.dtr. eJna is attempting to get in touch with other family members for advice. Patient currently lives at [facility]. [facility] arranged with [facility] prior to discharge from rehab. Giovana Reji RN CM CM revisited patient and g/dtr with a list of nursing facilities in HS area. Encouraged g/dtr to visit these facilities in order to make a decision. Also, suggested private caregivers if unable to locate an agreeable facility. Patient will be admitted to an Observation bed at this time. Giovana Mendoza RN, CM External Providers External Provider: [facility] [place] Next Contact Date: Service Request Date: Service Type: Resolution: Reviewer: Comments: Last DP export: 05/17/18 5:31 pm Patient Name: ARCELIA RUBIN Page [id number] at 0817 All edits/amendments must be made on the electronic document DICTATION DATE: 05/20/18816 DRIFT MINER: JOSIAH 05/20/18816 RPT#: [id number] DC DATE: STATUS: ADM IN [facility] [address] [place] [address] END OF REPORT
--- NOTE | 2018-05-20 08:49 | NUR ---
PT FAMILY MEMBER, ALLISON CALLED [facility] AND THEY SAID THAT THE PT WOULD BE ABLE TO COME TO THEM TODAY SINCE SHE WAS NO LONGER HAVING ANY FLU SYMPTOMS. ADVISED FAMILY THAT I WOULD CALL HER BACK ONCE I WAS ABLE TO OBTAIN MORE INFORMATION.
[2018-05-20 11:17] VITALS: BP 110/52
--- NOTE | 2018-05-20 12:01 | MORECARE ---
CASE MANAGEMENT DISCHARGE SUMMARY PATIENT: ARCELIA RUBIN UNIT: [id number] ADM DATE: 05/17/18 AGE: 87 : 31 SEX: F ROOM/BED: D.1211 AUTHOR: GARTH,DOC PHYSICIAN: REFERRING PHYSICIAN: SYMONE KNOWLES MD DATE OF SERVICE: 05/20/18 Discharge Plan Patient Name: ARCELIA RUBIN Facility: [facility]:[place] : 1930 Planned Disposition: Anticipated Discharge Date: Discharge Date: Expected LOS: 0 Initial Reviewer: [email or web address] Initial Review Date: 05/17/2018 Generated: 05/20/18 1:01 pm Comments DCP- Discharge Planning Updated by [email or web address]: Manisha Copeland on 05/20/18 10:[address] SPOKE WITH PEGGY AT [facility], PATIENT IS ACCEPTED TO SNF THERE. NURSE IS TO CALL REPORT TO HER AT [phone]. SHE STATED THAT SHE WOULD SET UP A VAN TIME, AND I EXPLAINED THAT THE FAMILY IS HERE TO TRANSPORT HER THERE. SHE HAS REQUESTED THAT THE DISCHARGE BE FAXED TO HER. I EXPLAINED I WOULD GET IT TO HER. I CALLED AND SPOKE WITH BONNY VIRGEN, BEDSIDE NURSE. SHE WILL CALL REPORT. DISCHARGE WILL BE FAXED TO [phone]. DCP- Discharge Planning Updated by [email or web address]: Rhonda Han on 05/20/18 7:[address] REFERRAL SENT TO [facility], LEFT MESSAGE FOR PEGGY OR ROSA ISELA TO CALL ME BACK. DCP- Discharge Planning Updated by [id number]: Giovana Mendoza on 05/17/18 4:[address] [place], [facility] with [facility] and was informed that patient will be accepted on Sunday morning. Contacted nursing with [facility] to inquire type of bed patient would going into, but nurse was unable to tell me. CM will contact again on Sunday for type of bed and transportation arrangements. Giovana Mendoza RN CM DCP- Discharge Planning Updated by [id number]: Giovana Mendoza on 05/17/18 3:[address] CM spoke with patient and g/dtr Jena Canas ([phone]), regarding placement in [facility]. Patient is in agreement to same. Patient Choice form signed per g.dtr (POA). CM contacted Peggy (admissions co-ord) regarding, faxed required information. After review per Peggy, the facility is unable to accept patient, due to recent Influenza diagnosis and need to continue Droplet Isolatiion at the facility. This information was relayed to the patient and g.dtr. Jena is attempting to get in touch with other family members for advice. Patient currently lives at [facility]. [facility] arranged with [facility] prior to discharge from rehab. Giovana Mendoza RN, CM CM revisited patient and g/dtr with a list of nursing facilities in HS area. Encouraged g/dtr to visit these facilities in order to make a decision. Also, suggested private caregivers if unable to locate an agreeable facility. Patient will be admitted to an Observation bed at this time. Giovana Mendoza RN, CM External Providers External Provider: [facility] Next Contact Date: Service Request Date: Service Type: Resolution: Reviewer: Comments: Coverage Notice Reviewer: [id number] - Giovana Mendoza Notice Issued Date-Time: 05/17/2018 16:25 Notice Type: Patient Choice Letter Notice Delivered To: Family Member Relationship to Patient: Granddaughter Cheese Tester Name: Shannon Canas Delivery Method: HAND - Hand Delivered Cindi Days: Prior Verbal Notification: Recipient Understood Notice: Yes Recipient Signature: Yes Med Rec Note Co-signed by Attending: Coverage Notice Comment: [facility] Last DP export: 05/20/18 7:17 a Patient Name: ARCELIA RUBIN Page [phone] at 1201 All edits/amendments must be made on the electronic document DICTATION DATE: 05/20/18 1201 DIRECTOR EMERGENCY SERVICES: JOSIAH 05/20/18 1201 RPT#: [id number] DC DATE: STATUS: ADM IN [facility] [address] [place] [address] END OF REPORT
--- NOTE | 2018-05-20 12:30 | NUR ---
PIV TO RIGHT ARM REMOVED WITH CATHETER TIP INTACT. DISCHARGE INSTRUCTIONS REVIEWED WITH PT, ALL QUESTIONS ANSWERED. ASSISTED PT TO FRONT OF HOSPITAL VIA WHEELCHAIR. PT LEFT WITH HER GRANDAUGHTER. CALLED REPORT TO JULIETA AT [facility]
--- NOTE | 2018-05-20 19:04 | MORECARE ---
CASE MANAGEMENT DISCHARGE SUMMARY PATIENT: ARCELIA RUBIN UNIT: [id number] ADM DATE: 05/18/18 AGE: 87 : 31 SEX: F ROOM/BED: D.1211 AUTHOR: GARTH,DOC PHYSICIAN: REFERRING PHYSICIAN: SYMONE KNOWLES MD DATE OF SERVICE: 05/20/18 Discharge Plan Patient Name: ARCELIA RUBIN Facility: [facility]:[place] : 1930 Planned Disposition: Anticipated Discharge Date: Discharge Date: 05/20/2018 Expected LOS: 0 Initial Reviewer: [email or web address] Initial Review Date: 05/17/2018 Generated: 05/20/18 8:03 pm Comments DCP- Discharge Planning Updated by [id number]: Manisha Copeland on 05/20/18 10:[address] SPOKE WITH PEGGY AT [facility], PATIENT IS ACCEPTED TO SNF THERE. NURSE IS TO CALL REPORT TO HER AT [phone]. SHE STATED THAT SHE WOULD SET UP A VAN TIME, AND I EXPLAINED THAT THE FAMILY IS HERE TO TRANSPORT HER THERE. SHE HAS REQUESTED THAT THE DISCHARGE BE FAXED TO HER. I EXPLAINED I WOULD GET IT TO HER. I CALLED AND SPOKE WITH BONNY VIRGEN, BEDSIDE NURSE. SHE WILL CALL REPORT. DISCHARGE WILL BE FAXED TO [phone]. DCP- Discharge Planning Updated by [email or web address]: Rhonda Han on 05/20/18 7:[address]FERRAL SENT TO [facility], LEFT MESSAGE FOR PEGGY OR ROSA ISELA TO CALL ME BACK. DCP- Discharge Planning Updated by [id number]: Giovana Mendoza on 05/17/18 4:[address] Sho Canas, [facility] and was informed that patient will be accepted on Sunday morning. Contacted nursing with [facility] to inquire type of bed patient would going into, but nurse was unable to tell me. CM will contact again on Sunday for type of bed and transportation arrangements. Givoana Mendoza RN CM DCP- Discharge Planning Updated by [email or web address]: Giovana Mendoza on 05/17/18 3:[address] CM spoke with patient and g/dtr Jena Canas ([phone]), regarding placement in [facility]. Patient is in agreement to same. Patient Choice form signed per g.dtr (DANIEL). CM contacted Peggy (admissions co-ord) regarding, faxed required information. After review per Peggy, the facility is unable to accept patient, due to recent Influenza diagnosis and need to continue Droplet Isolatiion at the facility. This information was relayed to the patient and g.dtr. Jena is attempting to get in touch with other family members for advice. Patient currently lives at [facility]. [facility] arranged with [facility] prior to discharge from rehab. Giovana Mendoza RN, CM CM revisited patient and g/dtr with a list of nursing facilities in HS area. Encouraged g/dtr to visit these facilities in order to make a decision. Also, suggested private caregivers if unable to locate an agreeable facility. Patient will be admitted to an Observation bed at this time. Giovana Mendoza RN CM Coverage Notice Reviewer: [id number] - Giovana Mendoza Notice Issued Date-Time: 05/17/2018 16:25 Notice Type: Patient Choice Letter Notice Delivered To: Family Member Relationship to Patient: Granddaughter Insurance Claims Representative Name: Shannon Canas Delivery Method: HAND - Hand Delivered Cindi Days: Prior Verbal Notification: Recipient Understood Notice: Yes Recipient Signature: Yes Med Rec Note Co-signed by Attending: Coverage Notice Comment: [facility] Last DP export: 05/20/18 11:01 a Patient Name: ARCELIA RUBIN Page [phone] at 1904 All edits/amendments must be made on the electronic document DICTATION DATE: 05/20/181902 INSOLE LIP TURNER: JOSIAH 05/20/181902 RPT#: [id number] DC DATE:05/20/18 STATUS: DIS IN [facility] [address] [place] [address] END OF REPORT
[2018-05-21 10:20] LABS: FOLATE (FOLIC ACID) - SERUM >20.0 ng/mL (>3.0)
== END 2018-05-20 16:40 | DRG 552 ==
LOC: D.ER 14:08 → D.EDHOLD 17:06 → D.M3 17:06 → OBSVTIME 17:07 → D.M3 18:26
PROVIDERS: Family Medicine; ADMIT Emergency Medicine; ATTEND Emergency Medicine
DX: S32.10XA Unspecified fracture of sacrum, initial encounter for closed fracture (principal); W18.30XA Fall on same level, unspecified, initial encounter; E11.65 Type 2 diabetes mellitus with hyperglycemia; M19.90 Unspecified osteoarthritis, unspecified site; K21.9 Gastro-esophageal reflux disease without esophagitis; I10 Essential (primary) hypertension; E78.5 Hyperlipidemia, unspecified; D64.9 Anemia, unspecified

== ENCOUNTER → 2018-06-28 14:05 | Outpatient (CLI) | payer MEDICARE, OTHER ==
[2018-05-17 22:24] VITALS: BMI 24.7
[2018-06-28 14:16] LABS: APPEARANCE CLEAR (CLEAR); BILIRUBIN NEGATIVE (NEGATIVE); COLOR YELLOW (YELLOW); GLUCOSE NEGATIVE (NEGATIVE); KETONE NEGATIVE (NEGATIVE); NITRITE NEGATIVE (NEGATIVE); PROTEIN NEGATIVE (NEGATIVE); SPECIFIC GRAVITY 1.005 (1.005-1.020); UROBILINOGEN NORMAL (NORMAL)
== END | disposition home or self-care (01) ==
LOC: D.LABREF 14:05
PROVIDERS: ATTEND Family Medicine
DX: M81.0 Age-related osteoporosis without current pathological fracture (principal); E08.9 Diabetes mellitus due to underlying condition without complications; I10 Essential (primary) hypertension; E78.5 Hyperlipidemia, unspecified

== ENCOUNTER 2018-12-31 03:14 | Inpatient (IN) | payer MEDICARE, OTHER ==
[2018-12-31] VITALS (7 sets, daily range): BP systolic 123–159; BP diastolic 56–76; BMI 25.3
[~2018-12-31] VITALS: Ht 157.5 cm; Wt 62.6 kg
[2018-12-31 04:16] LABS: BASOPHILS 0.3 % (0-2); EOSINOPHILS 4.5 % (0-7); HEMATOCRIT 30.4 % (36.0-48.0); HEMOGLOBIN 9.4 g/dL (12-16); IMMATURE GRANULOCYTES 0.3 % (0-5); MCH 27.9 pg (26.0-34.0); MCHC 30.9 g/dL (31.0-37.0); MCV 90.2 fL (80.0-100.0); MEAN PLATELET VOLUME 8.8 fL (7.4-10.4); MONOCYTES 15.3 % (2-11); NEUTROPHILS 42.6 % (40-80); RBC 3.37 10x6/uL (4.00-5.40); RDW 14.2 % (11.5-14.5); WBC 3.1 10x3/uL (4.8-10.8)
[2018-12-31 04:17] LABS: CALC OSMOLALITY 287 mosm/kg (275-300); CALCIUM 8.7 mg/dL (8.5-10.1); CARBON DIOXIDE 27.6 mmol/L (21.0-32.0); CHLORIDE - SERUM 108 mmol/L (98-107); CREATININE - SERUM 0.8 mg/dL (0.6-1.3); GLUCOSE 135 mg/dL (74-106); SODIUM 143 mmol/L (136-145); UREA NITROGEN 15 mg/dL (7-18); eGFR NON AFRICAN AMERICAN 72 mL/min (90-120)
--- NOTE | 2018-12-31 04:23 | NUR ---
URINE SENT TO LAB.
[2018-12-31 04:25] LABS: PLATELET COUNT 153 10x3/uL (130-400)
[2018-12-31 04:26] LABS: ALBUMIN 3.5 g/dL (3.4-5.0); ALKALINE PHOSPHATASE 37 U/L (46-116); ALT (SGPT) 15 U/L (10-68); AMYLASE - SERUM 80 U/L (25-115); BILIRUBIN - TOTAL 0.28 mg/dL (0.2-1.3); LIPASE 328 U/L (73-393); PROTEIN - SERUM 6.1 g/dL (6.4-8.2); TROPONIN-I < 0.017 ng/mL (0.000-0.060)
[2018-12-31 04:48] LABS: APPEARANCE CLEAR (CLEAR); BILIRUBIN NEGATIVE (NEGATIVE); COLOR YELLOW (YELLOW); GLUCOSE NEGATIVE (NEGATIVE); KETONE NEGATIVE (NEGATIVE); NITRITE POSITIVE (NEGATIVE); PROTEIN TRACE mg/dL (NEGATIVE); UROBILINOGEN NORMAL (NORMAL)
[2018-12-31 04:49] LABS: BACTERIA MANY /hpf (NEGATIVE); EPITHELIAL CELLS 0-5 /hpf (0-5); RED CELLS - URINE 0-5 /hpf (0-5); WHITE CELLS - URINE 0-5 /hpf (NEGATIVE)
--- NOTE | 2018-12-31 08:44 | NUR ---
PT LYING IN BED GRANDDAUGHTER AT BEDSIDE, NO NEEDS VOICED, BED IN LOW POSITION CL IN REACH CONTINUE WITH PLAN OF CARE
--- NOTE | 2018-12-31 10:08 | NUR ---
PT STATED SHE TAKESD TYLENOL AT HOME FOR PAIN, SPOKE TO ADELE RATLIFF AND RELAYED MESSAGE, PT STATED PAIN IS STARTING TO AFFECT HER, CONTINUE WITH PLAN OF CARE AND ADMINISTER PRN TYLENOL
[2018-12-31 13:14] LABS: % SATURATION 11 % (15-55); IRON 42 ug/dl (35-150); TOTAL IRON BIND CAPACITY 357 ug/dl (260-445); UNSAT IRON BIND CAPACITY 315 ug/dl (150-375)
--- NOTE | 2018-12-31 16:18 | NUR ---
I have reviewed this patient and I concur with the Shift Assessment completed by the Licensed Practical Nurse today this shift.
--- NOTE | 2018-12-31 20:26 | NUR ---
LYING QUIETLY WITH NO DISTRESS NOTED. NO COMPLAITNS VOICED. IV INFUSING TO LAC WITHOUT REDNESS OR EDEMA NOTED. DENIES NAUSEA AT THIS TIME. CL IN REACH
[2019-01-01 01:19] VITALS: BP 137/66
--- NOTE | 2019-01-01 02:54 | NUR ---
I have reviewed this patient and I concur with the Shift Assessment completed by the Licensed Practical Nurse today this shift.
[2019-01-01 05:03] VITALS: BP 123/60
[2019-01-01 05:11] LABS: BASOPHILS 0.3 % (0-2); EOSINOPHILS 2.7 % (0-7); HEMATOCRIT 28.4 % (36.0-48.0); HEMOGLOBIN 8.8 g/dL (12-16); LYMPHOCYTES 39.5 % (15-50); MCV 90.4 fL (80.0-100.0); NEUTROPHILS 46.5 % (40-80); PLATELET COUNT 150 10x3/uL (130-400); RBC 3.14 10x6/uL (4.00-5.40); RDW 14.5 % (11.5-14.5); WBC 3.7 10x3/uL (4.8-10.8)
[2019-01-01 05:37] LABS: ANION GAP 11.8 mmol/L (8-16); BILIRUBIN - TOTAL 0.33 mg/dL (0.2-1.3); CALCIUM 8.1 mg/dL (8.5-10.1); CARBON DIOXIDE 25.2 mmol/L (21.0-32.0); CREATININE - SERUM 0.8 mg/dL (0.6-1.3); PROTEIN - SERUM 5.6 g/dL (6.4-8.2)
[2019-01-01 09:21] VITALS: BP 138/65
--- NOTE | 2019-01-01 11:18 | NUR ---
PT RESTING IN BED. NO SIGNS OF DISTRESS. IV TO LEFT AC PATENT NO REDNESS OR TENDERNESS. DENIES ANY FURTHER NEED AT THIS TIME. CALL LIGHT IN REACH. BED LOW POSITION. NO FAMILY AT BEDSIDE AT THIS TIME.
[2019-01-01 12:40] VITALS: BP 153/66
[2019-01-01 12:52] VITALS: Ht 157.5 cm; Wt 62.6 kg
[2019-01-01] MEDS ORDERED: LEVOFLOXACIN500 MG PO (13:25)
--- NOTE | 2019-01-01 15:20 | MORECARE ---
CASE MANAGEMENT DISCHARGE SUMMARY PATIENT: ARCELIA RUBIN UNIT: [id number] ADM DATE: 12/31/18 AGE: 88 : 31 SEX: F ROOM/BED: D.2224 AUTHOR: GARTH,DOC PHYSICIAN: REFERRING PHYSICIAN: ANNE DENT MD DATE OF SERVICE: 01/01/19 Discharge Plan Patient Name: ARCELIA RUBIN Facility: [facility]:[place] : 1930 Planned Disposition: Home with Home Health Anticipated Discharge Date: 01/01/19 Discharge Date: Expected LOS: 1 Initial Reviewer: [email or web address] Initial Review Date: 01/01/2019 Generated: 01/01/19 4:20 pm Comments DCP- Discharge Planning Updated by [email or web address]: Florence Mo on 01/01/19 2:[address] Patient Name: ARCELIA RUBIN Admission Status: ER Accout number: [id number] Admission Date: 12-31-2018 : 1930 Admission Diagnosis: Attending: ANNE DENT Current LOS: 1 Anticipated DC Date: 01-01-2019 Planned Disposition: Home with Home Health Primary Insurance: MEDICARE A & B Discharge Planning Comments: CM met with patient to complete initial dc planning assessment. CM educated patient on the CM role and verbal consent given by patient to complete assessment. Patient lives at [facility]. At discharge patient plans to return and feels this is a safe discharge. CM discussed availability of home health, rehab services, and medical equipment. Patient denied known discharge needs at this time. She states her grand daughter will drive her home. She is unsure of what private duty care agency she uses, she states I can call her grand daughter to get more information. I called Jena and informed her that she has discharge orders today. She states that [facility] has been trying to set up home health for PT and asks if I can follow up on it. I spoke with Caryn at [facility] and she states they have not set it up yet, but to set it up with [facility]. I called Sandra and informed her of all the HHS that are available and star ratings and she picks [facility]. I spoke with Josie at [facility] and clinical faxed. CM will continue to follow and will assist as needed with dc plans/needs. Gifts Officer: Florence Mo DCPIA - Discharge Planning Initial Assessment Updated by [email or web address]: Florence Chepe on 01/01/19 3:16 pm * Is the patient Alert and Oriented? Yes * How many steps to enter\exit or inside your home? 0/0 * PCP Dr. Moore * Pharmacy [facility] on [address] * Preadmission Environment Assisted Living * Facility Name [facility] * ADLs Partial Dependent * Partial ADLs (Assistance needed) Ambulation Bathing Medication Management * Equipment Cane Rolling Walker * List name and contact numbers for known caregivers / representatives who currently or will assist patient after discharge: Jena Canas - grand daughter - [phone] * Verbal permission to speak to the caregivers and representatives has been obtained from the patient. Yes * Community resources currently utilized Private Duty Care * Please name any agencies selected above. [facility] * Additional services required to return to the preadmission environment? Yes * Can the patient safely return to the preadmission environment? Yes * Has this patient been hospitalized within the prior 30 days at any hospital? No External Providers External Provider: [facility] Next Contact Date: Service Request Date: Service Type: Resolution: Reviewer: Comments: Patient Name: ARCELIA RUBIN Page [id number] at 1520 All edits/amendments must be made on the electronic document DICTATION DATE: 01/01/19 152 SUPPORT SERVICES MANAGER: JOSIAH 01/01/19 1520 RPT#: [id number] DC DATE: STATUS: ADM IN [facility] [address] [place] [address] END OF REPORT
--- NOTE | 2019-01-01 16:48 | NUR ---
I have reviewed this patient and I concur with the Shift Assessment completed by the Licensed Practical Nurse today this shift.
--- NOTE | 2019-01-01 17:23 | NUR ---
DISCHARGE INSTRUCTIONS GIVEN. SEEMS TO UNDERSTAND INSTRUCTIONS. IV OUT TIP INTACT. LEFT WITH HOSPITAL STAFF TO GO HOME WITH FAMILY MEMBER. DENIES ANY NEED UPON LEAVING.
--- NOTE | 2019-01-02 08:16 | MORECARE ---
CASE MANAGEMENT DISCHARGE SUMMARY PATIENT: ARCELIA RUBIN UNIT: [id number] ADM DATE: 12/31/18 AGE: 88 : 31 SEX: F ROOM/BED: D.2224 AUTHOR: GARTH,DOC PHYSICIAN: REFERRING PHYSICIAN: ANNE DENT MD DATE OF SERVICE: 01/02/19 Discharge Plan Patient Name: ARCELIA RUBIN Facility: [facility]:[place] : 1930 Planned Disposition: Home with Home Health Anticipated Discharge Date: 01/01/19 Discharge Date: 01/01/2019 Expected LOS: 1 Initial Reviewer: [email or web address] Initial Review Date: 01/01/2019 Generated: 01/02/19 9:16 am Comments DCP- Discharge Planning Updated by [email or web address]: Florence Mo on 01/01/19 2:[address] Patient Name: ARCELIA RUBIN Admission Status: ER Accout number: [id number] Admission Date: 12-31-2018 : 1930 Admission Diagnosis: Attending: ANNE DENT Current LOS: 1 Anticipated DC Date: 01-01-2019 Planned Disposition: Home with Home Health Primary Insurance: MEDICARE A & B Discharge Planning Comments: CM met with patient to complete initial dc planning assessment. CM educated patient on the CM role and verbal consent given by patient to complete assessment. Patient lives at [facility]. At discharge patient plans to return and feels this is a safe discharge. CM discussed availability of home health, rehab services, and medical equipment. Patient denied known discharge needs at this time. She states her grand daughter will drive her home. She is unsure of what private duty care agency she uses, she states I can call her grand daughter to get more information. I called Jena and informed her that she has discharge orders today. She states that [facility] has been trying to set up home health for PT and asks if I can follow up on it. I spoke with Caryn at [facility] and she states they have not set it up yet, but to set it up with [facility]. I called Sandra and informed her of all the HHS that are available and star ratings and she picks [facility]. I spoke with Josie at [facility] and clinical faxed. CM will continue to follow and will assist as needed with dc plans/needs. Nurse Educator: Florence Chepe DCPIA - Discharge Planning Initial Assessment Updated by [email or web address]: Florence Bluntkathie on 01/01/19 3:16 pm * Is the patient Alert and Oriented? Yes * How many steps to enter\exit or inside your home? 0/0 * PCP Dr. Moore * Pharmacy [facility] on [address] * Preadmission Environment Assisted Living * Facility Name [facility] * ADLs Partial Dependent * Partial ADLs (Assistance needed) Ambulation Bathing Medication Management * Equipment Cane Rolling Walker * List name and contact numbers for known caregivers / representatives who currently or will assist patient after discharge: Jena Canas - grand daughter - [phone] * Verbal permission to speak to the caregivers and representatives has been obtained from the patient. Yes * Community resources currently utilized Private Duty Care * Please name any agencies selected above. [facility] * Additional services required to return to the preadmission environment? Yes * Can the patient safely return to the preadmission environment? Yes * Has this patient been hospitalized within the prior 30 days at any hospital? No Last DP export: 01/01/19 2:20 Patient Name: ARCELIA RUBIN Page 15710 at 0816 All edits/amendments must be made on the electronic document DICTATION DATE: 01/02/19814 TELECOMMUNICATIONS LINE INSTALLER: JOSIAH 01/02/19814 RPT#: [id number] DC DATE:01/01/19 STATUS: DIS IN [facility] [address] [place] [address] END OF REPORT
== END 2019-01-01 17:24 | disposition home health service (06) | DRG 690 ==
LOC: D.ER 03:14 → D.MS 05:22
PROVIDERS: Family Medicine; ADMIT Internal Medicine Nephrology; ATTEND Internal Medicine Nephrology
DX: N39.0 Urinary tract infection, site not specified (principal); D64.9 Anemia, unspecified; E11.9 Type 2 diabetes mellitus without complications; M20.42 Other hammer toe(s) (acquired), left foot

== ENCOUNTER 2020-05-15 08:05 | Inpatient (IN) | payer MEDICARE, OTHER ==
[~2020-05-15] VITALS: Ht 157.5 cm; Wt 65.8 kg
[2020-05-15 08:37] LABS: BASOPHILS 0.2 % (0-2); EOSINOPHILS 1.1 % (0-7); HEMATOCRIT 35.4 % (36.0-48.0); HEMOGLOBIN 11.5 g/dL (12-16); IMMATURE GRANULOCYTES 0.3 % (0-5); LYMPHOCYTE ABS# 1.09 10x3/uL (1.18-3.74); LYMPHOCYTES 17.5 % (15-50); MCHC 32.5 g/dL (31.0-37.0); MCV 92.4 fL (80.0-100.0); MEAN PLATELET VOLUME 8.5 fL (7.4-10.4); NEUTROPHIL ABS# 4.55 10x3/uL (1.56-6.13); NEUTROPHILS 72.9 % (40-80); RBC 3.83 10x6/uL (4.00-5.40); RDW 13.9 % (11.5-14.5); WBC 6.2 10x3/uL (4.8-10.8)
[2020-05-15 08:45] LABS: CALC OSMOLALITY 281 mosm/kg (275-300); CALCIUM 8.7 mg/dL (8.5-10.1); CARBON DIOXIDE 26.5 mmol/L (21.0-32.0); CHLORIDE - SERUM 102 mmol/L (98-107); CREATININE - SERUM 1.2 mg/dL (0.6-1.3); POTASSIUM - SERUM 3.8 mmol/L (3.5-5.1); SODIUM 137 mmol/L (136-145); UREA NITROGEN 19 mg/dL (7-18); eGFR NON AFRICAN AMERICAN 45 mL/min (90-120)
[2020-05-15 08:46] LABS: GLUCOSE 198 mg/dL (74-106)
[2020-05-15 08:52] LABS: PLATELET COUNT 212 10x3/uL (130-400)
[2020-05-15 08:54] LABS: ALKALINE PHOSPHATASE 45 U/L (30-120); ALT (SGPT) 19 U/L (10-68); AMYLASE - SERUM 65 U/L (25-115); BILIRUBIN - TOTAL 0.52 mg/dL (0.2-1.3); LIPASE 146 U/L (73-393); PROTEIN - SERUM 7.2 g/dL (6.4-8.2); TROPONIN-I < 0.017 ng/mL (0.000-0.060)
--- NOTE | 2020-05-15 10:04 | NUR ---
PT TO ROOM FROM ER. SITUATED COMFROTABLY IN BED. ORIENTED TO ROOM AND UNIT. DENIES ANY NEEDS AT THIS TIME. BED IN LOWEST POSITION, BED RAILS X2, CALL LIGHT WIITHIN REACH. WILL CONTINUE POC.
--- NOTE | 2020-05-15 11:19 | NUR ---
IN BED WITH EYES CLOSED, AROUSED EASILY TO VOICE. ASSESSED SUGAR. NO INSULIN PER SLIDING SCALE FOR SUGAR OF 142.
--- NOTE | 2020-05-15 13:42 | NUR ---
I have reviewed this patient and I concur with the Shift Assessment completed by the Licensed Practical Nurse today this shift.
--- NOTE | 2020-05-15 13:52 | NUR ---
NURSE GONZALEZ WILL MAKE PT NPO AFTER MIDNIGHT , SCHEDULE BARIUM ENEMA IN THE AM 7
[2020-05-15 14:48] VITALS: BP 136/66
--- NOTE | 2020-05-15 16:57 | NUR ---
RESTING COMFORTABLY IN BED. DENIES ANY NEEDS. CONTINUING SOAP/SUDS ENEMA. TOLERATING WELL. WILL CONTINUE POC.
[2020-05-15 17:51] VITALS: BP 140/61
[2020-05-15 20:00] VITALS: BP 116/53
--- NOTE | 2020-05-15 20:15 | NUR ---
AWAKE ALERT. NO COMPLAINTS VOICED. RESP EVEN AND UNLABORED. NO DISTRESS NOTED. IV TO LEFT HAND INTACT WITHOUT REDNESS OR EDEMA NOTED.PATIENT RECEIVING ENEMAS TILL CLEAR WITH GOOD RESULTS NOTED.
[2020-05-15] MEDS ORDERED: EPLERENONE25 MG PO (22:20)
[2020-05-16] VITALS: BP 121/53
[2020-05-16 04:00] VITALS: BP 153/102
--- NOTE | 2020-05-16 04:38 | NUR ---
I have reviewed this patient and I concur with the Shift Assessment completed by the Licensed Practical Nurse today this shift.
[2020-05-16 07:11] LABS: ALBUMIN 2.9 g/dL (3.4-5.0); ANION GAP 12.1 mmol/L (8-16); BILIRUBIN - TOTAL 0.32 mg/dL (0.2-1.3); CALCIUM 7.8 mg/dL (8.5-10.1); CARBON DIOXIDE 23.9 mmol/L (21.0-32.0); CREATININE - SERUM 0.9 mg/dL (0.6-1.3); MAGNESIUM - SERUM 2.2 mg/dL (1.8-2.4); PHOSPHOROUS 3.4 mg/dL (2.5-4.9); PROTEIN - SERUM 5.5 g/dL (6.4-8.2)
[2020-05-16 07:20] LABS: BASOPHILS 0.2 % (0-2); EOSINOPHILS 2.3 % (0-7); HEMATOCRIT 29.8 % (36.0-48.0); HEMOGLOBIN 9.6 g/dL (12-16); IMMATURE GRANULOCYTES 0.2 % (0-5); LYMPHOCYTE ABS# 1.34 10x3/uL (1.18-3.74); LYMPHOCYTES 30.9 % (15-50); MCH 30.3 pg (26.0-34.0); MCHC 32.2 g/dL (31.0-37.0); MEAN PLATELET VOLUME 9.1 fL (7.4-10.4); MONOCYTES 12.2 % (2-11); NEUTROPHIL ABS# 2.35 10x3/uL (1.56-6.13); NEUTROPHILS 54.2 % (40-80); PLATELET COUNT 180 10x3/uL (130-400); RBC 3.17 10x6/uL (4.00-5.40); RDW 14.1 % (11.5-14.5); WBC 4.3 10x3/uL (4.8-10.8)
[2020-05-16 07:55] VITALS: BP 134/58
--- NOTE | 2020-05-16 07:55 | NUR ---
PT RESTING QUIELTY IN BED. RESP EVEN AND UNLABORED. PT DENIES PAIN AT THIS TIME. DISCUSSED UPCOMING PROCEDURE WITH PT. PT VOICES UNDERSTANDING TO PROCEDURE, DENIES FURTHER QUESTIONS. IV TO LEFT HAND WITH NS @ 75ML/HR INFUSING VIA PUMP. SITE WITHOUT REDNESS OR EDEMA. F/C PATENT TO GRAVITY, DRAINING YELLOW URINE. DENIES FURTHER NEEDS AT THIS TIME. CL WITHIN REACH. CONTINUE POC
[2020-05-16 15:22] VITALS: BP 133/53
[2020-05-16 18:00] VITALS: BP 128/54
[2020-05-16 18:30] LABS: BILIRUBIN NEGATIVE (NEGATIVE); KETONE NEGATIVE (NEGATIVE); NITRITE NEGATIVE (NEGATIVE); UROBILINOGEN NORMAL mg/dL (< 2)
[2020-05-16 20:00] VITALS: BP 110/46
--- NOTE | 2020-05-16 20:45 | NUR ---
AWAKE WITH NO COMPLAINTS VOICED. RESP UNALBORED. IV TO LEFT HAND INTACT WITHOUT REDNESS OR EDEMA NOTED. CL IN REACH
--- NOTE | 2020-05-16 23:56 | NUR ---
I have reviewed this patient and I concur with the Shift Assessment completed by the Licensed Practical Nurse today this shift.
[2020-05-17 04:00] VITALS: BP 129/63
[2020-05-17 08:29] VITALS: BP 147/58
[2020-05-17 09:23] LABS: BASOPHILS 0.2 % (0-2); EOSINOPHILS 2.5 % (0-7); HEMATOCRIT 32.2 % (36.0-48.0); IMMATURE GRANULOCYTES 0.2 % (0-5); LYMPHOCYTES 25.3 % (15-50); MCH 29.3 pg (26.0-34.0); MCHC 31.1 g/dL (31.0-37.0); MCV 94.4 fL (80.0-100.0); MONOCYTES 9.9 % (2-11); NEUTROPHIL ABS# 2.69 10x3/uL (1.56-6.13); NEUTROPHILS 61.9 % (40-80); PLATELET COUNT 193 10x3/uL (130-400); RBC 3.41 10x6/uL (4.00-5.40); RDW 14.4 % (11.5-14.5); WBC 4.4 10x3/uL (4.8-10.8)
[2020-05-17 09:39] LABS: ALKALINE PHOSPHATASE 35 U/L (30-120); ALT (SGPT) 13 U/L (10-68); BILIRUBIN - TOTAL 0.37 mg/dL (0.2-1.3); CALC OSMOLALITY 285 mosm/kg (275-300); CALCIUM 7.6 mg/dL (8.5-10.1); CARBON DIOXIDE 22.5 mmol/L (21.0-32.0); CHLORIDE - SERUM 112 mmol/L (98-107); CREATININE - SERUM 0.7 mg/dL (0.6-1.3); GLUCOSE 115 mg/dL (74-106); PHOSPHOROUS 2.7 mg/dL (2.5-4.9); POTASSIUM - SERUM 3.3 mmol/L (3.5-5.1); PROTEIN - SERUM 5.3 g/dL (6.4-8.2); SODIUM 144 mmol/L (136-145); eGFR NON AFRICAN AMERICAN 83 mL/min (90-120)
[2020-05-17 09:40] LABS: UREA NITROGEN 6 mg/dL (7-18)
[2020-05-17 12:43] VITALS: BP 115/59
[2020-05-17 16:23] VITALS: BP 134/60
--- NOTE | 2020-05-17 16:51 | NUR ---
OT NOTE: PT COMPLETED BED MOB TASKS WITH MIN A. PT REQUIRED MAX A FOR LB HYGIENE TASKS. [phone] JOSLYN CAMPOS COTA
--- NOTE | 2020-05-17 19:00 | NUR ---
BEDSIDE REPORT RECEIVED AND CARE OF PT ASSUMED. PT LYING IN LOW AKBAR'S POSIITON VISITING WITH HER GRANDDAUGHTER. IV TO LEFT HAND SALINE LOCKED...RE-STARTED IV FLUIDS PER ORDER. GUTIERREZ CATHETER DRAINING TO GRAVITY WITH YELLOW URINE IN COLLECTION BAG. WILL MONITOR FOR NEEDS.
[2020-05-17 20:00] VITALS: BP 130/52
--- NOTE | 2020-05-17 20:45 | NUR ---
HS MEDICATIONS GIVEN. PT ONLY DRANK ABOUT HALF OF MIRALAX. WILL MONITOR FOR NEEDS.
[2020-05-18 04:00] VITALS: BP 108/75
[2020-05-18 06:49] LABS: BASOPHILS 0.4 % (0-2); EOSINOPHILS 3.9 % (0-7); HEMATOCRIT 33.5 % (36.0-48.0); HEMOGLOBIN 10.6 g/dL (12-16); IMMATURE GRANULOCYTES 0.2 % (0-5); LYMPHOCYTE ABS# 1.08 10x3/uL (1.18-3.74); LYMPHOCYTES 23.6 % (15-50); MCH 29.9 pg (26.0-34.0); MCHC 31.6 g/dL (31.0-37.0); MCV 94.6 fL (80.0-100.0); MEAN PLATELET VOLUME 9.2 fL (7.4-10.4); MONOCYTES 10.7 % (2-11); NEUTROPHILS 61.2 % (40-80); PLATELET COUNT 205 10x3/uL (130-400); RBC 3.54 10x6/uL (4.00-5.40); RDW 14.5 % (11.5-14.5); WBC 4.6 10x3/uL (4.8-10.8)
[2020-05-18 07:11] LABS: ALBUMIN 3.2 g/dL (3.4-5.0); ALKALINE PHOSPHATASE 41 U/L (30-120); ALT (SGPT) 16 U/L (10-68); BILIRUBIN - TOTAL 0.41 mg/dL (0.2-1.3); CALC OSMOLALITY 285 mosm/kg (275-300); CARBON DIOXIDE 22.4 mmol/L (21.0-32.0); CHLORIDE - SERUM 112 mmol/L (98-107); CREATININE - SERUM 0.7 mg/dL (0.6-1.3); GLUCOSE 117 mg/dL (74-106); MAGNESIUM - SERUM 2.1 mg/dL (1.8-2.4); POTASSIUM - SERUM 3.4 mmol/L (3.5-5.1); PROTEIN - SERUM 5.9 g/dL (6.4-8.2); SODIUM 144 mmol/L (136-145); UREA NITROGEN 6 mg/dL (7-18); eGFR NON AFRICAN AMERICAN 83 mL/min (90-120)
[2020-05-18 09:28] VITALS: BP 147/74
--- NOTE | 2020-05-18 09:40 | NUR ---
ALERT AND ORIENTED. ASSESSMENT COMPLETE. DENIES NEEDS. BED LOW. CALL VAZQUEZ AND PERSONAL ITEMS IN REACH. WILL CONTINUE TO MONITOR.
[2020-05-18 10:53] VITALS: Ht 157.5 cm; Wt 65.8 kg
[2020-05-18 12:37] VITALS: BP 139/68
--- NOTE | 2020-05-18 14:46 | NUR ---
REHAB PRESCREENING Ms. Ayoub is a good candidate for acute inpatient rehab if she is agreeable to come. I will begin her electronic screen and notify case management of completion. She can then be admitted to rehab if her physicians feel she is appropriate. Thank you for this referral! Areli Gaitan, RESEARCH GENETICIST Rehab PD
--- NOTE | 2020-05-18 14:51 | NUR ---
SPOKE WITH CASE MANAGEMENT ABOUT PATIENT WANTING TO DC. CASE MANAGEMENT STATES WILL CALL GRANDDAUGHTER TO CONFIRM THAT SHE WILL BE ABLE TO HELP WITH PATIENT AND THAT PATIENT DOES NOT WANT REHAB. ALSO POSSIBLY NEED HH TO HELP WITH PATIENT'S GUTIERREZ IF DC WITH GUTIERREZ FOR RETENTION. CASE MANAGEMENT TO WORK ON THIS WELL.
[2020-05-18] MEDS ORDERED: MIRALAX17 GM PO (15:08)
[2020-05-18] MEDS ORDERED: FLOMAX0.4 MG PO (15:08)
--- NOTE | 2020-05-18 16:17 | MORECARE ---
CASE MANAGEMENT DISCHARGE SUMMARY PATIENT: ARCELIA RUBIN UNIT: [id number] ADM DATE: 05/16/20 AGE: 89 : 31 SEX: F ROOM/BED: D.2230 AUTHOR: GARTH,DOC PHYSICIAN: REFERRING PHYSICIAN: ANABEL BUENO MD DATE OF SERVICE: 05/18/20 Discharge Plan Patient Name: ARCELIA RUBIN Facility: [facility]:[place] : 1930 Planned Disposition: Inpatient Rehab Anticipated Discharge Date: Discharge Date: Expected LOS: Initial Reviewer: [email or web address] Initial Review Date: 05/15/2020 Generated: 05/18/20 5:16 pm Comments DCP- Discharge Planning Updated by [email or web address]: Rachel Ryan on 05/18/20 3:[address] Patient Name: ARCELIA RUBIN Admission Status: ER Accout number: [id number] Admission Date: 05-16-2020 : 1930 Admission Diagnosis:FECAL IMPACTION Attending: ALANIS Current LOS: 2 Anticipated DC Date: Planned Disposition: Inpatient Rehab Primary Insurance: MEDICARE A & B Discharge Planning Comments: CM met with patient at bedside after obtaining verbal consent. CM discussed availability / needs of home health, REHAB and medical equipment. PATIENT THERAPY NOTES RECOMMEND INPATIENT REHAB. I TALKED WITH HER ABOUT REHAB AND SHE IS AGREEABLE. [facility] SIGNED FOR INPATIENT REHAB [facility] AND [facility] SIGNED AND COPY PLACED ON CHART. JUDI IS COMING TODAY TO BRING HER CLOTHES. PATIENT TO TRANSFER TO INPATIENT REHAB TODAY. CM TO FOLLOW AND ASSIST NEEDED. Press Operator Assistant: Rachel Ryan DCPIA - Discharge Planning Initial Assessment Updated by [id number]: Rachel Ryan on 05/18/20 4:13 pm * Is the patient Alert and Oriented? Yes * PCP NELSON * Pharmacy [facility] * Preadmission Environment Assisted Living * Facility Name [facility] * ADLs Independent * Other Equipment WALKER * Additional services required to return to the preadmission environment? Yes * Can the patient safely return to the preadmission environment? No * Has this patient been hospitalized within the prior 30 days at any hospital? No Coverage Notice Reviewer: [email or web address] Diana Singh Notice Issued Date-Time: 05/16/2020 17:10 Notice Type: Medicare Outpatient Observation Notice Notice Delivered To: Patient Relationship to Patient: Self Oxidation Operator Name: Delivery Method: HAND - Hand Delivered Cindi Days: Prior Verbal Notification: Recipient Understood Notice: Yes Recipient Signature: Yes Med Rec Note Co-signed by Attending: Coverage Notice Comment: CLAYTON delivered, explained, signed by the patient, and placed in chart. Signed form also left with the patient. Reviewer: [email or web address] Diana Ryan Notice Issued Date-Time: 05/18/2020 16:15 Notice Type: IM Discharge Notice Notice Delivered To: Patient Relationship to Patient: Oxidation Operator Name: Delivery Method: - Cindi Days: Prior Verbal Notification: Recipient Understood Notice: Yes Recipient Signature: Yes Med Rec Note Co-signed by Attending: Coverage Notice Comment: Reviewer: [id number] Ryan Notice Issued Date-Time: 05/18/2020 16:15 Notice Type: Patient Choice Letter Notice Delivered To: Patient Relationship to Patient: Oxidation Operator Name: Delivery Method: - Cindi Days: Prior Verbal Notification: Recipient Understood Notice: Yes Recipient Signature: Yes Med Rec Note Co-signed by Attending: Coverage Notice Comment: [facility] TO INPATIENT REHAB [facility] Patient Name: ARCELIA RUBIN Page [id number] at 1617 All edits/amendments must be made on the electronic document DICTATION DATE: 05/18/201615 QUICK SERVICE TECHNICIAN: JOSIAH 05/18/20 161 RPT#: [id number] DC DATE: STATUS: ADM IN [facility] [address] [place] [address] END OF REPORT
--- NOTE | 2020-05-18 16:19 | NUR ---
DC EDUCATION PROVIDED BOTH WRITTEN AND VERBAL. VERBALIZED UNDERSTANDING. DENIES FURTHER QUESTIONS. GRANDDAUGHTER ALSO MADE AWARE OF DC TO REHAB AND DENIES FURTHER QUESTIONS. IV REMOVED FROM LFA WITH TIP INTACT. WAITING REHAB TO CALL WITH CLEAN ROOM.
--- NOTE | 2020-05-18 16:51 | NUR ---
OT NOTE: PT COMPLETED BUE AROM WITH FUNTIONAL TASKS AND WALKER MANAGEMENT. PT COMPLETED ADL MOB WITH MIN A. PT COMPLETED LB HYGIENE WITH MAX A. [id number] THANK YOU,ISAK NOWAK
--- NOTE | 2020-05-18 17:16 | NUR ---
SPOKE WITH [facility] IN REHAB WHO STATES ROOM IS BEING CLEANED NOW AND WILL CALL WHEN CLEAN.
--- NOTE | 2020-05-18 18:03 | NUR ---
REPORT CALLED TO [facility] DRAPER ON REHAB. JOSE RATLIFF PAGED TO ADVANCE PATIENT'S DIET PRIOR TO BRINGING TO REHAB. EVY COKER PAGED.
--- NOTE | 2020-05-18 18:12 | NUR ---
PATIENT DC TO REHAB WITH ALL BELONGINGS.
--- NOTE | 2020-05-19 09:19 | MORECARE ---
CASE MANAGEMENT DISCHARGE SUMMARY PATIENT: ARCELIA RUBIN UNIT: [id number] ADM DATE: 05/16/20 AGE: 89 : 31 SEX: F ROOM/BED: D.2230 AUTHOR: GARTHDOC PHYSICIAN: REFERRING PHYSICIAN: ANABEL BUENO MD DATE OF SERVICE: 05/19/20 Discharge Plan Patient Name: ARCELIA RUBIN Facility: [facility]:[place] : 1930 Planned Disposition: Inpatient Rehab Anticipated Discharge Date: Discharge Date: 05/18/2020 Expected LOS: Initial Reviewer: [email or web address] Initial Review Date: 05/15/2020 Generated: 05/19/20 10:19 am Comments DCP- Discharge Planning Updated by [id number]: Rachel Ryan on 05/18/20 3:[address] Patient Name: ARCELIA RUBIN Admission Status: ER Accout number: [id number] Admission Date: 05-16-2020 : 1930 Admission Diagnosis:FECAL IMPACTION Attending: ALANIS Current LOS: 2 Anticipated DC Date: Planned Disposition: Inpatient Rehab Primary Insurance: MEDICARE A & B Discharge Planning Comments: CM met with patient at bedside after obtaining verbal consent. CM discussed availability / needs of home health, REHAB and medical equipment. PATIENT THERAPY NOTES RECOMMEND INPATIENT REHAB. I TALKED WITH HER ABOUT REHAB AND SHE IS AGREEABLE. [facility] SIGNED FOR INPATIENT REHAB [facility] AND [facility] SIGNED AND COPY PLACED ON CHART. JUDI IS COMING TODAY TO BRING HER CLOTHES. PATIENT TO TRANSFER TO INPATIENT REHAB TODAY. CM TO FOLLOW AND ASSIST NEEDED. Gym Teacher: Rachel Ryan DCPIA - Discharge Planning Initial Assessment Updated by [email or web address]: Rachel Ryan on 05/18/20 4:13 pm * Is the patient Alert and Oriented? Yes * PCP NELSON * [facility] * Preadmission Environment Assisted Living * Facility Name [facility] * ADLs Independent * Other Equipment WALKER * Additional services required to return to the preadmission environment? Yes * Can the patient safely return to the preadmission environment? No * Has this patient been hospitalized within the prior 30 days at any hospital? No Coverage Notice Reviewer: [id number] Diana Singh Notice Issued Date-Time: 05/16/2020 17:10 Notice Type: Medicare Outpatient Observation Notice Notice Delivered To: Patient Relationship to Patient: Self Dental Patient Coordinator Name: Delivery Method: HAND - Hand Delivered Cindi Days: Prior Verbal Notification: Recipient Understood Notice: Yes Recipient Signature: Yes Med Rec Note Co-signed by Attending: Coverage Notice Comment: CLAYTON delivered, explained, signed by the patient, and placed in chart. Signed form also left with the patient. Reviewer: [id number] Diana Ryan Notice Issued Date-Time: 05/18/2020 16:15 Notice Type: IM Discharge Notice Notice Delivered To: Patient Relationship to Patient: Dental Patient Coordinator Name: Delivery Method: - Cindi Days: Prior Verbal Notification: Recipient Understood Notice: Yes Recipient Signature: Yes Med Rec Note Co-signed by Attending: Coverage Notice Comment: Reviewer: [email or web address] Ryan Notice Issued Date-Time: 05/18/2020 16:15 Notice Type: Patient Choice Letter Notice Delivered To: Patient Relationship to Patient: Dental Patient Coordinator Name: Delivery Method: - Cindi Days: Prior Verbal Notification: Recipient Understood Notice: Yes Recipient Signature: Yes Med Rec Note Co-signed by Attending: Coverage Notice Comment: [facility] TO INPATIENT REHAB [facility] Last DP export: 05/18/20 3:17 pm Patient Name: ARCELIA RUBIN Page [phone] at 0919 All edits/amendments must be made on the electronic document DICTATION DATE: 05/19/20918 ULTRASOUND APPLICATIONS SPECIALIST: JOSIAH 05/19/20918 RPT#: [id number] DC DATE:05/18/20 STATUS: DIS IN [facility] [address] [place] [address] END OF REPORT
== END 2020-05-18 18:14 | DRG 389 ==
LOC: D.ER 08:05 → D.MS 09:36 → OBSVTIME 09:36 → D.MS 05-16 17:26
PROVIDERS: Emergency Medicine; Family Medicine; ADMIT Family Medicine; ATTEND Family Medicine
DX: K56.41 Fecal impaction (principal); F33.1 Major depressive disorder, recurrent, moderate; E86.0 Dehydration; E11.65 Type 2 diabetes mellitus with hyperglycemia; D64.9 Anemia, unspecified; R33.9 Retention of urine, unspecified; I10 Essential (primary) hypertension; E78.5 Hyperlipidemia, unspecified; K57.90 Diverticulosis of intestine, part unspecified, without perforation or abscess without bleeding; M20.40 Other hammer toe(s) (acquired), unspecified foot

== ENCOUNTER 2020-05-18 18:04 | Inpatient (IN) | payer MEDICARE, OTHER ==
[~2020-05-18] VITALS: Ht 157.5 cm; Wt 65.8 kg
[~2020-05-18 18:04] MED LIST changes: +EPLERENONE25 MG PO; +FLOMAX0.4 MG PO; +MIRALAX17 GM PO
--- NOTE | 2020-05-18 19:18 | NUR ---
RECIEVED PT LYING IN BED CL IN REACH. DENIES NEEDS AT THIS TIME. BED IN LOW SIDE RAILS X2. A/O X2. CONFUSED. GUTIERREZ INTACT. URINE WNL. RESP EVEN AND UNLABORED. BED ALARM ON. CPOC
--- NOTE | 2020-05-18 19:30 | NUR ---
PT ADMITTED TO IP REHAB UNDER DR. KNOWLES WITH WORKING DX DEBILITY. PT IS ALERT AND ORIENTED X3. REORIENTED TO PLACE. PT GETS CONFUSED AT TIMES PT IS EASY TO REDIRECT. FOLLOWS COMMANDS WITHOUT ISSUES. 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 DENIES ANY PAIN. NO SKIN ISSUES NOTED. GUTIERREZ CATH PATENT FREE FROM KINKS. WILL START BLADDER TRAINING AND COLLECT UA. GUITERREZ CATH CARE PROVIDED. HX OF MASTECTOMY WITH BREAST IMPLANTS. ORIENTED PT TO ROOM, BATHROOM, UNIT, AND REMOTE/CALL LIGHT FUNCTIONS. CALL LIGHT AND WATER WITHIN REACH. FALL PRECAUTIONS IN PLACE. CPOC
[2020-05-18 19:52] VITALS: BP 142/60; BMI 26.6
[2020-05-18 20:15] VITALS: BP 142/60
[2020-05-19 03:47] LABS: BILIRUBIN NEGATIVE (NEGATIVE); KETONE NEGATIVE (NEGATIVE); NITRITE NEGATIVE (NEGATIVE); UROBILINOGEN NORMAL mg/dL (< 2)
[2020-05-19 03:55] LABS: BACTERIA NONE SEEN HPF (NONE SEEN); SQUAMOUS EPITHELIAL 0-5 HPF (0-4); WHITE CELLS - URINE NONE SEEN HPF (0-4)
[2020-05-19 07:41] LABS: BASOPHILS 0.3 % (0-2); EOSINOPHILS 3.4 % (0-7); HEMATOCRIT 32.4 % (36.0-48.0); HEMOGLOBIN 10.4 g/dL (12-16); IMMATURE GRANULOCYTES 0.3 % (0-5); LYMPHOCYTE ABS# 0.97 10x3/uL (1.18-3.74); LYMPHOCYTES 25.2 % (15-50); MCH 29.9 pg (26.0-34.0); MCHC 32.1 g/dL (31.0-37.0); MCV 93.1 fL (80.0-100.0); MEAN PLATELET VOLUME 9.1 fL (7.4-10.4); MONOCYTES 9.9 % (2-11); NEUTROPHIL ABS# 2.35 10x3/uL (1.56-6.13); NEUTROPHILS 60.9 % (40-80); PLATELET COUNT 190 10x3/uL (130-400); RBC 3.48 10x6/uL (4.00-5.40); RDW 14.4 % (11.5-14.5); WBC 3.9 10x3/uL (4.8-10.8)
[2020-05-19 07:49] VITALS: BP 108/66
[2020-05-19 07:49] LABS: CALC OSMOLALITY 282 mosm/kg (275-300); CALCIUM 8.6 mg/dL (8.5-10.1); CARBON DIOXIDE 23.6 mmol/L (21.0-32.0); CHLORIDE - SERUM 111 mmol/L (98-107); CREATININE - SERUM 0.7 mg/dL (0.6-1.3); GLUCOSE 122 mg/dL (74-106); POTASSIUM - SERUM 3.1 mmol/L (3.5-5.1); SODIUM 143 mmol/L (136-145); UREA NITROGEN 5 mg/dL (7-18); eGFR NON AFRICAN AMERICAN 83 mL/min (90-120)
--- NOTE | 2020-05-19 12:47 | NUR ---
GRAND DAUGHTER TOOK PATIENTS PERSONAL CELL PHONE HOME PATIENT IS AWARE
[2020-05-19 13:21] VITALS: Ht 157.5 cm; Wt 65.8 kg
--- NOTE | 2020-05-19 13:25 | NUR ---
CARE TEAM MEETING: PATIENT IS NEW TO UNIT AND WILL BE RA AT NEXT MEETING. HAVE WELCOMED PATIENT TO UNIT. WILL CONTINUE TO FOLLOW WITH PATIENT.
--- NOTE | 2020-05-19 15:38 | NUR ---
PATIENT ADMITTS TO REHAB FROM ACUTE FLOOR. DR. NELSON IS HER PCP. DME AT HOME IS A WALKER. DISCHARGE PLANS ARE SHE IS RETURNING TO HER HOME AT [facility]. WILL CONTINUE TO FOLLOW WITH PATIENT.
--- NOTE | 2020-05-19 19:15 | NUR ---
RECIEVED PT RESTING QUIETLY. EYES CLOSED. NO DISTRESS NOTED. CL IN REACH. RESP EVEN AND UNLABORED. GUTIERREZ INTACT BLADDER TRAINING IN PROCESS. BED IN LOW SIDE RAILS X2. BED ALARM ON. CPOC
[2020-05-19 20:35] VITALS: BP 113/55
--- NOTE | 2020-05-20 06:40 | NUR ---
PT COMPLETED BLADDER TRAINING. GUTIERREZ CATH REMOVED. CATH INTACT. PT TOLERATED WELL. WILL CONTINUE TO MONITOR URINE OUTPUT.
[2020-05-20 08:00] VITALS: BP 130/56
--- NOTE | 2020-05-20 08:43 | NUR ---
SHE IS FORGETFUL, AFTER YOU CORRECT HER, SHE SAYS "I REMEMBER NOW". SHE IS LEANING TO THE LEFT SIDE WHEN SHE IS SETTING UP ON THE SIDE OF THE BED. THE CALL LIGHT IS WITHIN REACH AND THE BED ALARM IS ON.
[2020-05-20 16:34] VITALS: BP 128/68
[2020-05-20 20:00] VITALS: BP 108/63
--- NOTE | 2020-05-20 23:37 | NUR ---
ASSISTED PT TO RESTROOM TO URINATE AND THEN BACK TO BED. SHE DENIES NEEDS OR PAIN AT THIS TIME. NO DISTRESS NOTED. HER BED IS LOW, BED ALARM ON AND CALL LIGHT WITHIN REACH.
[2020-05-21 07:10] LABS: BASOPHILS 0.2 % (0-2); EOSINOPHILS 1.8 % (0-7); HEMATOCRIT 28.8 % (36.0-48.0); HEMOGLOBIN 9.5 g/dL (12-16); IMMATURE GRANULOCYTES 0.2 % (0-5); LYMPHOCYTE ABS# 0.82 10x3/uL (1.18-3.74); LYMPHOCYTES 18.3 % (15-50); MCH 30.4 pg (26.0-34.0); MCV 92.3 fL (80.0-100.0); MONOCYTES 10.7 % (2-11); NEUTROPHIL ABS# 3.09 10x3/uL (1.56-6.13); NEUTROPHILS 68.8 % (40-80); RBC 3.12 10x6/uL (4.00-5.40); RDW 14.5 % (11.5-14.5); WBC 4.5 10x3/uL (4.8-10.8)
[2020-05-21 07:20] VITALS: BP 125/52
[2020-05-21 07:21] LABS: ANION GAP 11.3 mmol/L (8-16); CALCIUM 8.3 mg/dL (8.5-10.1); CREATININE - SERUM 0.8 mg/dL (0.6-1.3); POTASSIUM - SERUM 3.3 mmol/L (3.5-5.1)
[2020-05-21 07:26] LABS: PLATELET COUNT 147 10x3/uL (130-400)
--- NOTE | 2020-05-21 07:45 | NUR ---
SHE IS SETTING UP IN THE WHEELCHAIR. SHE HAS SHORT TERM MEMORY LOSS. DOES NOT REMEMBER TO LOCK/UNLOCK THE WHEELS ON THE CHAIR. SHE HAS BEEN INCONTINENT OF URINE THIS MORNING. SHE IS SETTING UP BY THE BED, THE CALL LIGHT IS WITHIN REACH AND THE CHAIR ALARM IS ON.
--- NOTE | 2020-05-21 13:21 | NUR ---
Nutrition Follow-up: Diet: Regular PO intake: ~7% average x last 5 meals recorded. Patient was OOR to therapy at time of RD visit. Last BM: 05/21/20 x 2. At: 145# (05/19/20) Meds noted: probiotics, abx, k-dur, metformin, miralax Labs noted: K 3.3(L), Glu 106(WNL) Recommend continue current diet. May need to change to consistent CHO if patient with increased PO intake and glucose begins to trend up, otherwise will leave as regular for now. Will add Ensure TID. MD may consider adding appetite stimulant as medically feasible. RD will follow-up 05/25/20.
[2020-05-21 16:53] VITALS: BP 107/59
--- NOTE | 2020-05-21 18:42 | NUR ---
BEDSIDE REPORT COMPLETE. RECEIVED PT SITTING UP IN BED AWAKE. ALERT AND ORIENTED X3. DENIES ANY NEEDS OR PAIN. NO DISTRESS NOTED. RIGHT HAND IV WITHOUT S/S INFECTION. DRESSING AND SWAB CAP INTACT. CALL LIGHT AND WATER WITHIN REACH. FALL PRECAUTIONS IN PLACE. CPOC
--- NOTE | 2020-05-21 19:05 | NUR ---
BEDSIDE REPORT COMPLETE. RECEIVED PT SITTING UP IN W/C VISITING WITH FAMILY. ALERT AND ORIENTED X3. REORIENTED TO SITUATION. NO DISTRESS NOTED. DENIES ANY NEEDS OR PAIN. +1 EDEMA NOTED TO BILATERAL ANKLES AND FEET. CALL LIGHT AND WATER WITHIN REACH. FALL PRECAUTIONS IN PLACE. CPOC
--- NOTE | 2020-05-21 20:05 | NUR ---
FOUND PT PROPELLING SELF IN W/C TOWARDS RESTROOM, WHEN PT WAS ASKED WHERE SHE WAS GOING PT STATED "I'M TRYING TO FIND YOUR TWO LITTLE BOYS" ASKED PT WHERE SHE WAS PT STATED "I'M IN THE HOSPITAL, I JUST THOUGHT THE BOYS WERE HERE" REASSURED PT THAT THERE WAS NO CHILDREN IN HER ROOM AND ASSISTED PT TO RESTROOM. PT VOIDED AND HAS SMALL LOOSE BM. PT PERFORMED TOILETING HYGIENE WITH MIN ASSIST. ASSISTED WITH TRANSFER FROM W/C TO BED WITH MOD ASSIST. SHIFT ASSESSMENT COMPLETED. VS STABLE. HS MEDS ADMINISTERED. CALL LIGHT AND WATER WITHIN REACH. ZORAIDA ALARM ON. CPOC
[2020-05-21 20:14] VITALS: BP 141/61
--- NOTE | 2020-05-22 00:09 | NUR ---
PT LYING IN BED ON RIGHT SIDE EYES CLOSED RESTING. RR EVEN AND UNLABORED. HOB ELEVATED. CALL LIGHT WITHIN REACH. ZORAIDA ALARM ON. CPOC
--- NOTE | 2020-05-22 02:00 | NUR ---
HEARD PT YELLING OUT FOR ASSISTANCE, FOUND PT TRYING TO GET OOB. REDIRECTED PT TO USE CALL LIGHT FOR ASSISTANCE INSTEAD OF YELLING. PT STATED "I DO NOT HAVE A CALL LIGHT" PT CALL LIGHT WAS BEDSIDE PT IN BED. SHOWED PT CALL LIGHT AND INSTRUCTED PT ON HOW TO CALL NURSE FOR ASSIST. PT VERBALIZED UNDERSTANDING AND RETURN DEMOSTRATED ON USAGE. ASSISTED PT TO RESTROOM WITH MOD ASSIST. PT VOIDED AND TOILETING HYGIENE DONE INDEPENDENTLY. ASSISTED PT WITH TRANSFER FROM W/C TO BED WITH MOD ASSIST. PT NEEDED ASSISTANCE WITH GETTING LEGS IN BED. PT POSITIONED ON LEFT SIDE. DENIES ANY OTHER NEEDS OR PAIN. CALL LIGHT WITHIN REACH. ZORAIDA ALARM ON. CPOC
--- NOTE | 2020-05-22 05:30 | NUR ---
PT CALLED FOR ASSISTANCE TO RESTROOM. ASSISTED PT TO RESTROOM WITH MOD ASSIST. LARGE VOID/SMALL LOOSE BM. PT BACK IN BED POSITIONED ON LEFT SIDE. NO OTHER NEEDS VOICED. DENIES PAIN. CALL LIGHT WITHIN REACH. ZORAIDA ALARM ON. CPOC
[2020-05-22 08:00] VITALS: BP 135/68
--- NOTE | 2020-05-22 09:52 | NUR ---
LETTING DOWN IN BED RESTING QUIETLY. HAS BEEN UP THIS MORNING AND SAT IN WC FOR BREAKFAST. IS SLOW BUT CAN TRANSFER SELF WITH SBA OF STAFF. HANDS ARE DEFORMED FROM RA. CALL LIGHT IN REACH
--- NOTE | 2020-05-22 18:42 | NUR ---
BEDSIDE REPORT COMPLETE. RECEIVED PT SITTING UP IN W/C AWAKE. ALERT AND ORIENTED X4. PT DOES HAVE SOME MILD CONFUSION AT TIMES. NO IV OR O2. NO DISTRESS NOTED. BILATERAL FEET AND ANKLE +1 DEPENDENT EDEMA NOTED. DENIES ANY NEEDS OR PAIN. CALL LIGHT AND PERSONAL ITEMS WITHIN REACH. FALL PRECAUTIONS IN PLACE. CHAIR ZORAIDA ON. CPOC
--- NOTE | 2020-05-22 18:42 | NUR ---
BEDSIDE REPORT COMPLETE. RECEIVED PT SITTING UP IN RECLINER AWAKE. ALERT AND ORIENTED X4. GUTIERREZ CATH PATENT, FREE FROM KINKS, ARABELLA URINE NOTED IN COLLECTION CONTAINER. 375ML EMPTIED. NO IV OR O2. NO DISTRESS NOTED. DENIES ANY NEEDS OR PAIN. CALL LIGHT AND NECTAR THICKED APPLE JUICE WITHIN REACH. FALL PRECAUTIONS IN PLACE. CPOC
[2020-05-22 20:26] VITALS: BP 106/46
--- NOTE | 2020-05-22 22:54 | NUR ---
PT LYING IN BED ON LEFT SIDE EYES CLOSED RESTING. RR EVEN AND UNLABORED. CALL LIGHT WITHIN REACH. CPOC
--- NOTE | 2020-05-23 03:26 | NUR ---
PT LYING IN BED SUPINE EYES CLOSED RESTING. RR EVEN AND UNLABORED. CALL LIGHT WITHIN REACH.
[2020-05-23 08:21] VITALS: BP 131/62
--- NOTE | 2020-05-23 10:29 | NUR ---
RESTING QUIETLY IN BED. EYES CLOSED. NO S/S DISTRESS. CALL LIGHT IN REACH
--- NOTE | 2020-05-23 11:59 | NUR ---
DTR IN ROOM VISITING. PT IS DOING WELL. DENIES PAIN OR NEEDS. CALL LIGHT IN REACH
--- NOTE | 2020-05-23 18:42 | NUR ---
BEDSIDE REPORT COMPLETE. PT LYING IN BED EYES CLOSED RESTING. EASILY AROUSED WITH STIMULI. DENIES ANY NEEDS OR PAIN. NO DISTRESS NOTED. NO IV OR O2. CALL LIGHT AND WATER WITHIN REACH. FALL PRECAUTIONS IN PLACE. ZORAIDA ON. CPOC
--- NOTE | 2020-05-23 20:15 | NUR ---
ASSISTED PT TO RESTROOM WITH MIN ASSIST. CLEAR YELLOW VOID. TRANSFERED BACK TO BED FROM W/C WITH MIN ASSIST. C/0 5/10 GENERALIZED DEEP ACHING PAIN AND UPSET STOMACH WITH INDIGESTION. NO OTHER NEEDS VOICED. CALL LIGHT WITHIN REACH. ZORAIDA ALARM ON.
[2020-05-23 20:23] VITALS: BP 156/56
--- NOTE | 2020-05-24 00:12 | NUR ---
PT LYING IN BED ON LEFT SIDE EYES CLOSED RESTING. RR EVEN AND UNLABORED. CALL LIGHT WITHIN REACH.
--- NOTE | 2020-05-24 00:45 | NUR ---
PT CALLED NEEDING ASSISTANCE TO RESTROOM. MIN ASSIST WITH TRANSFERS. PT VOIDED. PT AGREED TO SHOWER NOW INSTEAD OF EARLY AM. PT WAS ABLE TO WASH ALL BODY PARTS WITHOUT ASSISTANCE ONLY SUPERVISION. PT DRESSED SELF WITH MIN ASSIST. PT IN BED LYING ON RIGHT SIDE. DENIES ANY OTHER NEEDS. CALL LIGHT WITHIN REACH. ZORAIDA ALARM ON. CPOC
--- NOTE | 2020-05-24 02:47 | NUR ---
PT LYING IN BED ON LEFT SIDE EYES CLOSED RESTING. RR EVEN AND UNLABORED. CALL LIGHT WITHIN REACH
--- NOTE | 2020-05-24 04:30 | NUR ---
PT CALLED NEEDING ASSISTANCE TO RESTROOM. TRANSFERED WITH MIN ASSIST. VOID ONLY. PT LYING IN BED SUPINE, HEELS BRIDGED. NO OTHER NEEDS VOICED. NO ACUTE CHANGES IN CONDITION NOTED THIS SHIFT. CALL LIGHT WITHIN REACH.
--- NOTE | 2020-05-24 07:50 | NUR ---
UP WITH YASHIRA STEVENS TO TRANSFER TO FROM BED. BOTH HANDS HAVE SEVERE RA IN THEM SO HER HYDRAULICS TEACHER IS WEAK. CONT OF B/B. BOIDED PALE YELLOW URINE IN TOILET. SITTING IN IN ROOM NOW WAITING ON BREAKFAST. DENIES NEEDS. CALL LIGHT IN REACH.
[2020-05-24 08:00] VITALS: BP 132/74
[2020-05-24 08:07] LABS: BASOPHILS 0.3 % (0-2); EOSINOPHILS 3.3 % (0-7); HEMATOCRIT 32.3 % (36.0-48.0); HEMOGLOBIN 10.3 g/dL (12-16); LYMPHOCYTE ABS# 1.19 10x3/uL (1.18-3.74); LYMPHOCYTES 38.9 % (15-50); MCH 29.6 pg (26.0-34.0); MCHC 31.9 g/dL (31.0-37.0); MCV 92.8 fL (80.0-100.0); MEAN PLATELET VOLUME 9.4 fL (7.4-10.4); MONOCYTES 14.1 % (2-11); NEUTROPHIL ABS# 1.33 10x3/uL (1.56-6.13); NEUTROPHILS 43.4 % (40-80); PLATELET COUNT 166 10x3/uL (130-400); RBC 3.48 10x6/uL (4.00-5.40); RDW 14.5 % (11.5-14.5); WBC 3.1 10x3/uL (4.8-10.8)
[2020-05-24 08:33] LABS: ANION GAP 10.1 mmol/L (8-16); CALCIUM 9.9 mg/dL (8.5-10.1); CARBON DIOXIDE 28.8 mmol/L (21.0-32.0); CREATININE - SERUM 0.9 mg/dL (0.6-1.3); POTASSIUM - SERUM 3.9 mmol/L (3.5-5.1)
--- NOTE | 2020-05-24 09:24 | RHP ---
PATIENT: ARCELIA RUBIN MEDICAL RECORD: [id number] ACCOUNT: [id number] LOCATION:[facility]1112 : 31 ADMISSION DATE: 05/18/20 REHABILITATION HISTORY AND PHYSICAL EXAMINATION POST ADMISSION PHYSICIAN EXAMINATION ADMITTING DIAGNOSIS: Debility. HISTORY OF PRESENT ILLNESS: The patient is an 89-year-old female patient who presented from [facility] for nausea, vomiting, abdominal pain. She lives in assisted living. Apparently, she is a pretty poor historian. She has got a history of diabetes and diverticulitis. The patient was managing her blood sugar with a low resistance sliding scale. She was started on MiraLax and Dulcolax upon admission to the hospital. CT of her abdomen showed marked distention of the urinary bladder and moderate stool, large fecal impaction, some ascites. Prior to this hospitalization, the patient was living independently at [facility], which she required some assistance every couple of days for standby assist in the showers, medication reminders and have someone sit with her. [facility] has been providing her with care. Currently, being monitor closely for her lab values, cognition and medication adjustments. She has got inadequate energy intake. She has been on clear liquid diet. She is requiring some bowel management and bladder training. She has decreased activity tolerance, decreased strength, proximal muscle weakness, balance deficit, impaired mobility. She is a high fall risk and has self-care deficits. These are all barriers to her discharge home back safely at this time. COMORBIDITIES: Include anemia, coronary artery disease, dehydration, depression, diverticulitis, nausea, urinary retention, weakness, hyperlipidemia. PAST MEDICAL HISTORY: Significant for hearing aids, diabetes, diverticulitis, hard of hearing and glasses. PAST SURGICAL HISTORY: Includes hysterectomy and double mastectomy. ALLERGIES: SULFA. CURRENT MEDICATIONS: She is on Inspra 25 mg every 48 hours, she is on Flomax 0.4 mg daily, Mobic 7.5 mg daily, metformin 500 mg b.i.d. with meals, carvedilol 6.25 mg b.i.d. with meals, MiraLax 17 grams in 8 ounces of water daily and Lipitor 5 mg at bedtime. HABITS: No alcohol or tobacco use. FAMILY HISTORY: Noncontributory. SOCIAL HISTORY: The patient hopes to return back home and get back to her prior level of functioning. REVIEW OF SYSTEMS: GENERAL: Does complain of weakness and fatigue. HEENT: She denies cold, cough or congestion. CARDIOVASCULAR: Denies any chest pain. PHYSICAL EXAMINATION: HISTORY AND PHYSICAL [id number] ARCELIA RUBIN VITAL SIGNS: Stable and afebrile. GENERAL: An elderly female in no acute distress upon exam. HEENT: Normocephalic and atraumatic. Mucosa moist. NECK: Supple with no lymphadenopathy. LUNGS: Clear in upper jimenez. No wheezing or rales. HEART: Regular rate and rhythm. No murmurs, rubs or gallops. ABDOMEN: Soft, benign, nondistended. Positive bowel sounds times 4. EXTREMITIES: No clubbing, cyanosis or edema. NEUROLOGIC: She does have some diffuse weakness, especially in the proximal muscles of her thighs. LABORATORY DATA: Her white count is 3.9, H&H of 10.4 and 32.4 and platelet count is 190. Sodium 143, potassium 3.1, BUN and creatinine of 5 and 0.7, blood sugar is noted to be 122. Her admit UA was essentially negative. ASSESSMENT: This is an 89-year-old female patient admitted to rehab with a working diagnosis of debility. The patient has potential to make improvement. We instituted the following multidisciplinary therapies including, not limited to physical, occupational, respiratory, speech, nutritional services, prosthetics and orthotics. Given her complex medical condition and risks for more complications, rehabilitation services cannot be provided at a low level of care such as snf facility. PLAN: 1. [facility] inpatient therapy to include the following disciplines; A. Physical therapy to improve gait, all transfer skills and bed mobility to a modified independent level. B. Occupational therapy to improve activities of daily living. C. Case management to help with discharge planning and placement options. D. Nutrition to assist with nutritional needs. E. Rehabilitation nursing to assist in monitoring the patient's underlying medical condition and to assist with any type of bowel or bladder management. 2. The patient's current medication and medical care will be continued. 3. The patient will be placed on standard fall precautions. 4. I am going to go ahead and replace her potassium. 5. We will discuss her case today with care team at noon and I will see again in the a.m. TRANSINT:[id number] Voice Confirmation ID: [id number] DOCUMENT ID: [id number] 05/21/2020 Edited jimmie NELSON. OMAR notes whether there has been none or any medical/functional change since admission: - No change since preadmission screen. OMAR attests patient continues to be appropriate for IRF: - Continues to be appropriate. HISTORY AND PHYSICAL [id number] ARCELIA RUBIN,LOUISA ASHBY MD at 0924 CC: [id number] DICTATION DATE: 05/19/20 0850 NUT PROCESS HELPER: 05/19/20 1211 ADM IN [facility] [address] [id number]
--- NOTE | 2020-05-24 12:44 | NUR ---
Nutrition Follow-up: Diet: Regular with cut meats + Ensure TID PO intake: 75% x last 4 meals. She states that she is feeling like her appetite is coming back. She says that she wants a cookie. Last BM: 05/24/20 Wt: 145# (05/19/20) Meds noted: probiotics, abx, k-dur, metformin, miralax Labs noted: Glu 110(H) Recommend continue current diet. Will continue to honor food preferences. RD will follow-up within 7 days.
--- NOTE | 2020-05-24 19:05 | NUR ---
RECIEVED PT SITTING UP IN WHEELCHAIR. CL IN REACH. BED SIDE SHIFT REPORT COMPLETED. A/O X3 FORGETFUL AT TIMES. RESP EVEN AND UNLABORED. BOWEL ACTIVE X4. LUNGS CLEAR. NO SKIN BREAKDOWN. CPOC
[2020-05-24 20:20] VITALS: BP 130/72
[2020-05-25 08:00] VITALS: BP 110/62
--- NOTE | 2020-05-25 08:00 | NUR ---
SHIFT ASSMT COMPLETED.CL IN REACH.
--- NOTE | 2020-05-25 12:00 | NUR ---
SITTING UP EATING LUNCH.
--- NOTE | 2020-05-25 19:05 | NUR ---
RECIEVED PT LYING IN BED WATCHING TV.CL IN REACH. DENIES NEEDS AT THIS TIME. BEDSIDE SHIFT REPORT COMPLETED. BED IN LOW SIDE RAILS X2. BED ALARM ON. RESP EVEN AND UNLABORED. LUNGS CLEAR. BOWEL ACTIVE X4. A/O X3 FORGETFUL. CPOC
[2020-05-25 20:34] VITALS: BP 138/56
--- NOTE | 2020-05-26 04:51 | NUR ---
I have reviewed this patient and I concur with the Shift Assessment completed by the Licensed Practical Nurse today this shift.
[2020-05-26 06:20] LABS: BASOPHILS 0.3 % (0-2); EOSINOPHILS 3.2 % (0-7); HEMATOCRIT 31.6 % (36.0-48.0); HEMOGLOBIN 10.2 g/dL (12-16); IMMATURE GRANULOCYTES 0.3 % (0-5); LYMPHOCYTES 38.8 % (15-50); MCH 30.1 pg (26.0-34.0); MCHC 32.3 g/dL (31.0-37.0); MCV 93.2 fL (80.0-100.0); MEAN PLATELET VOLUME 9.4 fL (7.4-10.4); MONOCYTES 14.6 % (2-11); NEUTROPHIL ABS# 1.32 10x3/uL (1.56-6.13); NEUTROPHILS 42.8 % (40-80); PLATELET COUNT 167 10x3/uL (130-400); RBC 3.39 10x6/uL (4.00-5.40); RDW 14.5 % (11.5-14.5); WBC 3.1 10x3/uL (4.8-10.8)
[2020-05-26 06:58] LABS: ANION GAP 14.4 mmol/L (8-16); CARBON DIOXIDE 23.3 mmol/L (21.0-32.0); CREATININE - SERUM 0.9 mg/dL (0.6-1.3); POTASSIUM - SERUM 3.7 mmol/L (3.5-5.1)
[2020-05-26 08:00] VITALS: BP 123/66
--- NOTE | 2020-05-26 08:00 | NUR ---
SHIFT ASSMT COMPLETED.CL IN REACH.DENIES NEEDS.BREAKFAST GIVEN.
--- NOTE | 2020-05-26 12:00 | NUR ---
SITTING UP IN ROOM.LUNCH GIVEN.
--- NOTE | 2020-05-26 14:03 | NUR ---
CARE TEAM MEETING: PATIENT IS DOING WELL IN THERAPY AND WILL DISCHARGE HOME IN THE AM. WILL CONTINUE TO FOLLOW WITH PATIENT AND WILL ASSIST WITH DC NEEDS.
[2020-05-26 20:30] VITALS: BP 128/74
--- NOTE | 2020-05-27 01:37 | NUR ---
PT CALLED FOR HELP TO THE RESTROOM. SHE WAS A STANDBY ASSIST. SHE DENIES PAIN OR NEEDS. AFTER SHE GOT BACK INTO BED, I GAVE HER THE CALL LIGHT. HER BED IS LOW AND BED ALARM ON.
--- NOTE | 2020-05-27 07:30 | NUR ---
PT RESTING IN BED WITH EYES OPEN CALL LIGHT IN REACH NO PROBLEMS WILL MONITER
--- NOTE | 2020-05-27 09:16 | NUR ---
PATIENT DISCHARGING HOME TODAY WITH FAMILY. PATIENT DECLINES HOME HEALTH AT THIS TIME. [facility] WILL SEE PATIENT AT HOME IN 7-[address]. PATIENT WILL SEE DR. NELSON ON AN NEEDED BASIS. SAVAGE SIGNED, IMM SERVED AND EXPLAINED, ONE GIVEN TO PATIENT AND ONE FILED IN CHART. DC INSTRUCTIONS FAXED TO PCP, [facility] AND REVIEWED WITH PATIENT.
--- NOTE | 2020-05-27 12:00 | NUR ---
PT DISCHARGED TO HOME WITH ROBY VIA WHEELCHAIR DISCHARGE SUMMARY AND MEDS REVIEWED WITH PT TOLERATED WELL
[2020-05-27 18:09] LABS: AEROBE ID Final report (())
--- NOTE | 2020-05-28 11:48 | NUR ---
PATIENT HAS DECIDED THAT SHE WOULD LIKE HOME HEALTH AND SHE HAD BEEN A CLIENT OF [facility] AND WISHES TO CONTINUE . ORDERS HAVE BEEN FAXED
== END 2020-05-27 14:59 | disposition home or self-care (01) | DRG 948 ==
LOC: D.REHAB 18:04
PROVIDERS: ADMIT Emergency Medicine; ATTEND Emergency Medicine
DX: R53.81 Other malaise (principal); K57.92 Diverticulitis of intestine, part unspecified, without perforation or abscess without bleeding; N39.0 Urinary tract infection, site not specified; D64.9 Anemia, unspecified; I25.10 Atherosclerotic heart disease of native coronary artery without angina pectoris; E86.0 Dehydration; F32.9 Major depressive disorder, single episode, unspecified; R33.9 Retention of urine, unspecified; E78.5 Hyperlipidemia, unspecified; R53.1 Weakness; I10 Essential (primary) hypertension; H91.90 Unspecified hearing loss, unspecified ear